=== PATIENT | female | born 2000 | race Caucasian/White ===

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

== ENCOUNTER 2019-05-13 15:02 | Emergency (ER) | payer OTHER ==
[2019-05-13 15:06] VITALS: BP 113/75; PULSE 88; RESP 20; TEMP 97.9
[2019-05-13] MEDS ORDERED: LIDOCAINE 1% INJ 10MG/ML (20 ML MDV) SQ STA (15:10)
[2019-05-13] MEDS ORDERED: DIPH,PERTUS(ACELL)TETVAC-LF 0.5 ML VIAL IM ONE (15:33)
--- NOTE | 2019-05-13 15:39 | ED ---
General Adult HPI - General Chief complaint: ENT Stated complaint: FB in ear Time Seen by Provider: 05/13/19 15:08 Source: patient Mode of arrival: ambulatory Limitations: no limitations - History of Present Illness Initial comments: 19-year-old female patient no pertinenet pmhx presents to ED for evaluation of piercing in right tragus. Patient reports that she had the piercing placed 5 days ago, reports that scabbed over causing her pain she wanted removed. Denies a chance of being . Denies any other complaints. Systemic: Pt denies fatigue, fever/chills, rash. Pt denies weakness, night sweats, weight loss. Neuro: Pt denies headache, visual disturbances, syncope or pre-syncope. HEENT: Pt denies ocular discharge or irritation, otalgia, rhinorrhea, pharyngitis or notable lymphadenopathy. Cardiopulmonary: Pt denies chest pain, SOB, heart palpitations, dyspnea on exertion. Abdominal/GI: Pt denies abdominal pain, n/v/d. : Pt denies dysuria, burning w/ urination, frequency/urgency. Denies new onset urinary or bowel incontinence. MSK: Pt denies myalgia, loss of strength or function in extremities. Neuro: Pt denies new onset weakness, paresthesias. - Related Data Home Medications Medication Instructions Recorded Confirmed Pnv No.95/Ferrous Fum/Folic AC 1 tab PO DAILY 11/29/18 11/29/18 [ Multivitamin Tablet] Allergies Allergy/AdvReac Type Severity Reaction Status Date / Time nickel Allergy Rash/Hives Verified 05/13/19 15:06 Review of Systems ROS Statement: Those systems with pertinent positive or pertinent negative responses have been documented in the HPI. ROS Other: All systems not noted in ROS Statement are negative. Past Medical History Past Medical History: No Reported History History of Any Multi-Drug Resistant Organisms: None Reported Past Surgical History: No Surgical Hx Reported Past Psychological History: No Psychological Hx Reported Smoking Status: Never smoker Past Alcohol Use History: None Reported Past Drug Use History: None Reported General Exam - General Exam Comments Initial Comments: Constitutional: NAD, AOX3, Pt has pleasant affect. HEENT: NC/AT, trachea midline, neck supple, no lymphadenopathy. Posterior pharynx non erythematous, without exudates. External ears appear normal, without discharge. Mucous membranes moist. Eyes PERRLA, EOM intact. There is no scleral icterus. No pallor noted. Cardiopulmonary: RRR, no murmurs, rubs or gallops, no JVD noted. Lungs CTAB in anterior and posterior granados. No peripheral edema. Abdominal exam: Abdomen soft and non-distended. Abdomen non-tender to palpation in all 4 quadrants. Bowel sounds active in LLQ. No hepatosplenomegaly. No ecchymosis Neuro: CN II-XII grossly intact. No nuchal rigidity. No raccon eyes, no mosher sign, no hemotympanum. No cervical spinal tenderness. MSK: Earring noted right tragus, grown over, superficial area not exposed. No erythema or discharge. No posterior calf tenderness bilaterally, homans sign negative bilaterally. Posterior tibialis and radial pulse +2 bilaterally. Sensation intact in upper and lower extremities. Full active ROM in upper and lower extremities, 5/5 stregnth. Limitations: no limitations Course Vital Signs 05/13/19 15:03 Temperature 97.9 F Pulse Rate 88 Respiratory 20 Rate Blood Pressure 113/75 O2 Sat by Pulse 99 Oximetry Procedures - Forgein Body Removal Soft Tissue Consent Obtained: verbal consent Site: face (Right tragus) Anesthetic Used: lidocaine 1% Amount (mLs): 1 Foreign Body Suspected: Other (Earring) Foreign Body Removed: yes Foreign Body Removal Technique: Forceps Patient Tolerated Procedure: well, no complications Medical Decision Making - Medical Decision Making 19-year-old female patient upper intestinal history presents to ED for evaluation of piercing in right tragus. Patient reports that she had the piercing placed 5 days ago, reports that scabbed over causing her pain she wanted removed. Denies a chance of being . Denies any other complaints. Patient vital signs are stable, afebrile. Physical exam displayed: Earring noted right tragus, grown over, superficial area not exposed. Area was cleaned with alcohol swab, anesthetized with 1 mL of lidocaine. Earring was removed. No erythema purulent drainage or signs of infection. Patient discharged return precautions tetanus is updated. Case discussed with Dr. Laws. Disposition Clinical Impression: Soft tissues foreign body, Embedded earring of right ear Disposition: HOME SELF-CARE Condition: Stable Instructions (If sedation given, give patient instructions): Soft Tissue Foreign Body (ED) Additional Instructions: Monitor for signs and symptoms of infection. Follow-up with primary care provider tomorrow. Return to ER if condition worsens. Is patient prescribed a controlled substance at d/c from ED?: No Referrals: None,Stated [Primary Care Provider] - 1-[address] [facility] Anika sheriff [NON-STAFF] - 1-2 days
== END 2019-05-13 15:55 | disposition home or self-care (01) ==
LOC: EC 15:02
DX: T16.1XXA Foreign body in right ear, initial encounter (principal); Z91.048 Other nonmedicinal substance allergy status; Z23 Encounter for immunization
CPT/HCPCS: 90715; 99282; 69200; 90471; J2001

== ENCOUNTER 2020-04-25 19:02 | Emergency (ER) | payer OTHER ==
[2020-04-25 19:09] VITALS: BP 112/74; PULSE 88; RESP 18; TEMP 98.4
--- NOTE | 2020-04-25 19:34 | ED ---
General Adult HPI - General Chief complaint: Vaginal Bleeding Stated complaint: female Time Seen by Provider: 04/25/20 19:22 Source: patient Mode of arrival: ambulatory Limitations: no limitations - History of Present Illness Initial comments: Dictation was produced using [employer] dictation software. please excuse any grammatical, word or spelling errors. This patient was cared for during a federal and state declared state of emergency secondary to Covid 19 Chief Complaint: 20-year-old female presents with excessive vaginal bleeding History of Present Illness: 20-year-old feels presents with excessive vaginal bleeding. Patient was told by her [employer] to seek medical attention if she had persistent bleeding including symptoms of bleeding. Patient states that her last month or so her menstrual cycle or so been very irregular. She denies any shortness of breath no lightheadedness. She took a test today which was negative. Patient states that prior to her menstrual cycle issues she's been very regular. Denies any other issues at this time. Patient is sexually active however she does not think she is . She is has varying degrees of bleeding throughout the last 2 weeks where she with either soaked through a tampon completely or just have some light spotting. She has no pelvic pain. She has no pain during sexual intercourse. The ROS documented in this emergency department record has been reviewed and confirmed by me. Those systems with pertinent positive or negative responses have been documented in the HPI. All other systems are other negative and/or noncontributory. PHYSICAL EXAM: General Impression: Alert and oriented x3, not in acute distress HEENT: Normocephalic atraumatic, extra-ocular movements intact, pupils equal and reactive to light bilaterally, mucous membranes moist. Cardiovascular: Heart regular rate and rhythm Chest: Able to complete full sentences, no retractions, no tachypnea Abdomen: abdomen soft, non-tender, non-distended, no organomegaly Musculoskeletal: Pulses present and equal in all extremities, no peripheral edema Motor: no focal deficits noted Neurological: CN II-XII grossly intact, no focal motor or sensory deficits noted Skin: Intact with no visualized rashes Psych: Normal affect and mood Pelvic: No cervical motion tenderness, vaginal mucosa is unremarkable, cervical os is closed, no cervical motion tenderness or bimanual tenderness ED course: 20-year-old female presents with clinical presentation consistent with metomenorrhagia. Vital signs upon arrival are within acceptable limits Laboratory evaluation obtained. Hemoglobin stable. Coag panel is negative. Metabolic panel is negative. Urine hCG is negative. Case is discussed with Dr. Landeros who is on-call for Dr. Kirkpatrick. Recommend that she follow up with Dr. Jenna langley for outpatient workup for dysfunctional uterine bleeding. Patient told to plan. She is agreeable for discharge. - Related Data Home Medications Medication Instructions Recorded Confirmed Pnv No.95/Ferrous Fum/Folic AC 1 tab PO DAILY 11/29/18 11/29/18 [ Multivitamin Tablet] Allergies Allergy/AdvReac Type Severity Reaction Status Date / Time nickel Allergy Rash/Hives Verified 04/25/20 19:09 Review of Systems ROS Statement: Those systems with pertinent positive or pertinent negative responses have been documented in the HPI. ROS Other: All systems not noted in ROS Statement are negative. Past Medical History Past Medical History: No Reported History History of Any Multi-Drug Resistant Organisms: None Reported Past Surgical History: No Surgical Hx Reported Past Psychological History: Anxiety Smoking Status: Never smoker Past Alcohol Use History: None Reported Past Drug Use History: None Reported General Exam Limitations: no limitations Course Vital Signs 04/25/20 19:06 Temperature 98.4 F Pulse Rate 88 Respiratory 18 Rate Blood Pressure 112/74 O2 Sat by Pulse 100 Oximetry Medical Decision Making - Lab Data Result diagrams: 04/25/20 19:48 04/25/20 19:48 Lab Results 04/25/20 04/25/20 04/25/20 Range/Units 19:48 19:48 19:48 WBC 5.5 (3.8-10.6) k/uL RBC 4.93 (3.80-5.40) m/uL Hgb 14.4 (11.4-16.0) gm/dL Hct 44.8 (34.0-46.0) % MCV 90.8 (80.0-100.0) fL MCH 29.3 (25.0-35.0) pg MCHC 32.2 (31.0-37.0) g/dL RDW 13.5 (11.5-15.5) % Plt Count 244 (150-450) k/uL MPV 8.5 Neutrophils % 53 % Lymphocytes % 35 % Monocytes % 5 % Eosinophils % 3 % Basophils % 1 % Neutrophils # 2.9 (1.3-7.7) k/uL Lymphocytes # 1.9 (1.0-4.8) k/uL Monocytes # 0.3 (0-1.0) k/uL Eosinophils # 0.2 (0-0.7) k/uL Basophils # 0.0 (0-0.2) k/uL PT 11.4 (9.0-12.0) sec INR 1.1 (<1.2) APTT 26.1 (22.0-30.0) sec Sodium 141 (137-145) mmol/L Potassium 3.5 (3.5-5.1) mmol/L Chloride 101 (98-107) mmol/L Carbon Dioxide 28 (22-30) mmol/L Anion Gap 12 mmol/L BUN 8 (7-17) mg/dL Creatinine 0.61 (0.52-1.04) mg/dL Est GFR (CKD-EPI)AfAm >90 (>60 ml/min/1.73 sqM) Est GFR (CKD-EPI)NonAf >90 (>60 ml/min/1.73 sqM) Glucose 100 H (74-99) mg/dL Calcium 9.6 (8.4-10.2) mg/dL Urine HCG, Qual (Not Detectd) 04/25/20 Range/Units 20:30 WBC (3.8-10.6) k/uL RBC (3.80-5.40) m/uL Hgb (11.4-16.0) gm/dL Hct (34.0-46.0) % MCV (80.0-100.0) fL MCH (25.0-35.0) pg MCHC (31.0-37.0) g/dL RDW (11.5-15.5) % Plt Count (150-450) k/uL MPV Neutrophils % % Lymphocytes % % Monocytes % % Eosinophils % % Basophils % % Neutrophils # (1.3-7.7) k/uL Lymphocytes # (1.0-4.8) k/uL Monocytes # (0-1.0) k/uL Eosinophils # (0-0.7) k/uL Basophils # (0-0.2) k/uL PT (9.0-12.0) sec INR (<1.2) APTT (22.0-30.0) sec Sodium (137-145) mmol/L Potassium (3.5-5.1) mmol/L Chloride (98-107) mmol/L Carbon Dioxide (22-30) mmol/L Anion Gap mmol/L BUN (7-17) mg/dL Creatinine (0.52-1.04) mg/dL Est GFR (CKD-EPI)AfAm (>60 ml/min/1.73 sqM) Est GFR (CKD-EPI)NonAf (>60 ml/min/1.73 sqM) Glucose (74-99) mg/dL Calcium (8.4-10.2) mg/dL Urine HCG, Qual Not Detected (Not Detectd) Disposition Clinical Impression: Menorrhagia Disposition: HOME SELF-CARE Condition: Good Instructions (If sedation given, give patient instructions): Menorrhagia (ED) Is patient prescribed a controlled substance at d/c from ED?: No Referrals: Trinity Kirkpatrick DO [Doctor of Osteopathic Medicine] - 1-2 days Time of Disposition: 20:43
[2020-04-25 19:53] LABS: Basophils % (A) 1 %; Eosinophils # (A) 0.2 k/uL (0-0.7); Eosinophils % (A) 3 %; HCT 44.8 % (34.0-46.0); HGB 14.4 gm/dL (11.4-16.0); Lymphocytes # (A) 1.9 k/uL (1.0-4.8); Lymphocytes % (A) 35 %; MCH 29.3 pg (25.0-35.0); MCHC 32.2 g/dL (31.0-37.0); MCV 90.8 fL (80.0-100.0); Mean Platelet Volume 8.5; Monocytes # (A) 0.3 k/uL (0-1.0); Monocytes % (A) 5 %; Neutrophils # (A) 2.9 k/uL (1.3-7.7); Neutrophils % (A) 53 %; Platelet Count 244 k/uL (150-450); RBC 4.93 m/uL (3.80-5.40); RDW 13.5 % (11.5-15.5); WBC 5.5 k/uL (3.8-10.6)
[2020-04-25 20:01] LABS: African American GFR (CKD) >90 (>60 ml/min/1.73 sqM); Anion Gap 12 mmol/L; Blood Urea Nitrogen 8 mg/dL (7-17); Calcium 9.6 mg/dL (8.4-10.2); Carbon Dioxide 28 mmol/L (22-30); Chloride 101 mmol/L (98-107); Glucose 100 mg/dL (74-99); Non-African American GFR(CKD) >90 (>60 ml/min/1.73 sqM); Potassium 3.5 mmol/L (3.5-5.1); Sodium 141 mmol/L (137-145)
[2020-04-25 20:13] LABS: INR 1.1 (<1.2); Prothrombin Time 11.4 sec (9.0-12.0)
[2020-04-25 20:14] LABS: Partial Thromboplastin Time 26.1 sec (22.0-30.0)
== END 2020-04-25 20:56 | disposition home or self-care (01) ==
LOC: EC 19:02
DX: N92.0 Excessive and frequent menstruation with regular cycle (principal); Z91.048 Other nonmedicinal substance allergy status
CPT/HCPCS: 36415; 80048; 81025; 85025; 85610; 85730; 87491; 87591; 99284

== ENCOUNTER 2020-06-23 22:08 | Emergency (ER) | payer OTHER ==
[2020-06-23 22:18] VITALS: RESP 18; TEMP 98.5
[2020-06-23] MEDS ORDERED: ACETAMINOPHEN TAB 500 MG TAB PO STA (23:41)
--- NOTE | 2020-06-24 00:20 | ED ---
General Adult HPI - General Chief complaint: Vaginal Bleeding Stated complaint: vaginal beeding, 6weeks Time Seen by Provider: 06/23/20 22:26 Source: patient Mode of arrival: ambulatory Limitations: no limitations - History of Present Illness Initial comments: 20-year-old female patient presents to the emergency department today for evaluation of vaginal bleeding and abdominal cramping. Patient states she is approximately 6 weeks with a last menstrual period 05/12/2020. She is with previous vaginal delivery. Patient states that the abdominal pain has improved. States she did pass a couple of very large blood clots today. States she has changed her pad every few hours. She was seen and evaluated at [facility], underwent lab testing and ultrasound. States that her hCG level was 1100, but was not given ultrasound results. She does have an appointment with Dr. Kirkpatrick on the . Patient denies any recent rash, fever, chills, cough, shortness of breath, chest pain, nausea, vomiting, diarrhea, constipation, back pain, numbness, tingling, dizziness, weakness, hematuria, dysuria, urinary urgency, urinary frequency, headache, visual changes, or any other complaints. - Related Data Home Medications Medication Instructions Recorded Confirmed Pnv No.95/Ferrous Fum/Folic AC 1 tab PO DAILY 11/29/18 11/29/18 [ Multivitamin Tablet] Allergies Allergy/AdvReac Type Severity Reaction Status Date / Time nickel Allergy Rash/Hives Verified 06/23/20 22:18 Review of Systems ROS Statement: Those systems with pertinent positive or pertinent negative responses have been documented in the HPI. ROS Other: All systems not noted in ROS Statement are negative. Past Medical History Past Medical History: No Reported History History of Any Multi-Drug Resistant Organisms: None Reported Past Surgical History: No Surgical Hx Reported Past Psychological History: Anxiety Smoking Status: Never smoker Past Alcohol Use History: None Reported Past Drug Use History: None Reported General Exam Limitations: no limitations General appearance: alert, in no apparent distress, other (this is a well- developed, well-nourished adult female patient in no acute distress.) ENT exam: Present: normal exam, normal oropharynx, mucous membranes moist Respiratory exam: Present: normal lung sounds bilaterally. Absent: respiratory distress, wheezes, rales, rhonchi, stridor Cardiovascular Exam: Present: regular rate, normal rhythm, normal heart sounds. Absent: systolic murmur, diastolic murmur, rubs, gallop, clicks GI/Abdominal exam: Present: soft, normal bowel sounds. Absent: distended, tenderness, guarding, rebound, rigid Neurological exam: Present: alert, oriented X3, CN II-XII intact Psychiatric exam: Present: normal affect, normal mood Skin exam: Present: warm, dry, intact, normal color. Absent: rash Course Vital Signs 06/23/20 06/24/20 22:14 00:50 Temperature 98.5 F Pulse Rate 99 82 Respiratory 18 18 Rate Blood Pressure 121/82 118/68 O2 Sat by Pulse 99 100 Oximetry Medical Decision Making - Medical Decision Making 20-year-old female patient presents to the emergency department today for evaluation of vaginal bleeding and abdominal cramping. 6 weeks with last menstrual period May 12. Physical examination did reveal soft nontender abdomen. Did perform pelvic exam which showed a large blood clot in the vaginal vault which was cleared, cervical os does appear to be open. I did review reports from [facility] including labs showed a normal hemoglobin, hCG was 1100, ultrasound showed no intrauterine , no adnexal mass. I did discuss the results with the patient. We did discuss possibility of miscarriage versus very early . She will be discharged home with a lab prescription to have repeat hCG in 2 days. Results will be sent to Dr. Kirkpatrick. She is instructed to call Dr. Kirkpatrick's office in the morning to see if she can have a sooner appointment. Return parameters were discussed in detail. She verbalizes understanding and agrees with this plan. Case discussed with my attending Dr. Alvarez. - Radiology Data Radiology results: report reviewed Disposition Clinical Impression: Threatened miscarriage Disposition: HOME SELF-CARE Condition: Good Instructions (If sedation given, give patient instructions): Threatened Miscarriage (ED) Additional Instructions: Return in 2 days to have the hormone level redrawn. Follow-up with Dr. Kirkpatrick as soon as possible. Follow-up through primary care physician for recheck in 1-2 days. Return to the emergency department for any new, worsening, or concerning symptoms. Is patient prescribed a controlled substance at d/c from ED?: No Referrals: Concepción Dc III, MD [Primary Care Provider] - 1-2 days Trinity Kirkpatrick DO [Doctor of Osteopathic Medicine] - 1-2 days Time of Disposition: 00:20
[2020-06-24 00:57] VITALS: BP 118/68; PULSE 82
== END 2020-06-24 00:55 | disposition home or self-care (01) ==
LOC: EC 22:08
DX: O20.0 Threatened abortion (principal); O99.341 Other mental disorders complicating pregnancy, first trimester; F41.9 Anxiety disorder, unspecified; Z3A.01 Less than 8 weeks gestation of pregnancy
CPT/HCPCS: 99283

== ENCOUNTER → 2020-07-08 | Outpatient (CLI) | payer OTHER | END | disposition home or self-care (01) | LOC: LABWHC1 15:34 | PROVIDERS: ATTEND Obstetrics & Gynecology | DX: O03.9 Complete or unspecified spontaneous abortion without complication (principal); Z3A.00 Weeks of gestation of pregnancy not specified | CPT/HCPCS: 36415; 84702 ==

== ENCOUNTER 2020-09-06 18:56 | Emergency (ER) | payer OTHER ==
[2020-09-06] MEDS ORDERED: KETOROLAC 15 MG/ML 1 ML VIAL IVP STA (19:42)
[2020-09-06 20:04] LABS: Basophils # (A) 0.1 k/uL (0-0.2); Basophils % (A) 1 %; Eosinophils # (A) 0.2 k/uL (0-0.7); Eosinophils % (A) 3 %; HCT 41.5 % (34.0-46.0); HGB 14.1 gm/dL (11.4-16.0); Lymphocytes # (A) 2.2 k/uL (1.0-4.8); Lymphocytes % (A) 35 %; MCH 30.4 pg (25.0-35.0); MCHC 33.9 g/dL (31.0-37.0); MCV 89.5 fL (80.0-100.0); Monocytes # (A) 0.4 k/uL (0-1.0); Monocytes % (A) 7 %; Neutrophils # (A) 3.2 k/uL (1.3-7.7); Neutrophils % (A) 52 %; Platelet Count 242 k/uL (150-450); RBC 4.63 m/uL (3.80-5.40); RDW 13.3 % (11.5-15.5); WBC 6.2 k/uL (3.8-10.6)
[2020-09-06 20:07] LABS: Appearance,Urine Cloudy (Clear); Bacteria,Urine Rare /hpf; Bilirubin,Urine Negative (Negative); Blood,Urine Negative (Negative); Budding Yeast,Urine Few /hpf; Color,Urine Light Yellow; Glucose,Urine (UA) Negative (Negative); Ketones,Urine Negative (Negative); Leukocyte Esterase,Urine Moderate (Negative); Mucus,Urine Rare /hpf; Nitrite,Urine Negative (Negative); PH, Urine 6.5 (5.0-8.0); Protein,Urine Negative (Negative); RBC,Urine 3 /hpf (0-5); Specific Gravity,Urine 1.011 (1.001-1.035); Squamous Epithelial Cell,Urine 9 /hpf (0-4); Urobilinogen,Urine <2.0 mg/dL (<2.0); WBC,Urine 6 /hpf (0-5)
[2020-09-06 20:16] LABS: ALT 12 U/L (4-34); AST 23 U/L (14-36); African American GFR (CKD) >90 (>60 ml/min/1.73 sqM); Albumin 4.5 g/dL (3.5-5.0); Alkaline Phosphatase 42 U/L (38-126); Anion Gap 9 mmol/L; Blood Urea Nitrogen 8 mg/dL (7-17); Calcium 9.5 mg/dL (8.4-10.2); Carbon Dioxide 28 mmol/L (22-30); Chloride 102 mmol/L (98-107); Glucose 93 mg/dL (74-99); Lipase 132 U/L (23-300); Non-African American GFR(CKD) >90 (>60 ml/min/1.73 sqM); Potassium 3.5 mmol/L (3.5-5.1); Sodium 139 mmol/L (137-145); Total Bilirubin 0.5 mg/dL (0.2-1.3); Total Protein 7.4 g/dL (6.3-8.2)
--- NOTE | 2020-09-06 20:38 | ED ---
Abdominal Pain HPI - General Chief Complaint: Abdominal Pain Stated Complaint: abd pain Time Seen by Provider: 09/06/20 19:32 Source: patient Mode of arrival: ambulatory Limitations: no limitations - History of Present Illness Initial Comments: This 20-year-old female presents complaining of some right upper quadrant abdominal pain. This initially started approximately 2 weeks and was fairly severe at that time. It is been intermittent since that time. She has had occasional nausea but no vomiting, diarrhea, fevers, or chills. She denies any previous history of similar. It does not seem to be related to food intake. She denies any frequency, urgency or dysuria. She had a miscarriage this past spring and does not feel think that she is currently as she had a negative urine test a couple days ago. No other complaints or modifying factors. MD Complaint: abdominal pain - Related Data Home Medications Medication Instructions Recorded Confirmed Acetaminophen Tab [Tylenol Tab] 500 mg PO Q6H PRN 09/06/20 09/06/20 Cyanocobalamin (Vitamin B-12) 1,000 mcg PO DAILY PRN 09/06/20 09/06/20 [Vitamin B-12] Ondansetron HCl [Zofran] 4 mg PO BID PRN 09/06/20 09/06/20 Previous Rx's Medication Instructions Recorded Metoclopramide [Reglan] 10 mg PO Q6H PRN #20 tab 09/06/20 Nitrofurantoin Monohyd/M-Cryst 100 mg PO Q12HR #14 cap 09/06/20 [Macrobid] Allergies Allergy/AdvReac Type Severity Reaction Status Date / Time nickel Allergy Rash/Hives Verified 09/06/20 20:29 Review of Systems ROS Statement: Those systems with pertinent positive or pertinent negative responses have been documented in the HPI. ROS Other: All systems not noted in ROS Statement are negative. Past Medical History Past Medical History: No Reported History History of Any Multi-Drug Resistant Organisms: None Reported Past Surgical History: No Surgical Hx Reported Past Psychological History: Anxiety Smoking Status: Never smoker Past Alcohol Use History: None Reported Past Drug Use History: None Reported General Exam - General Exam Comments Initial Comments: GENERAL: The patient is well nourished and well hydrated. VITAL SIGNS: Heart rate, blood pressure, respiratory rate reviewed as recorded in nurse's notes. EYES: Pupils are round and reactive. Extraocular movements are intact. No conjunctival / lid redness or swelling. ENT: No external evidence of injury, swelling, or ecchymosis. Airway is patent. Throat is clear. NECK: Nontender. No swelling or evidence of injury. No subcutaneous emphysema. Trachea is midline. No thyroid mass. HEART: Regular rate and rhythm. Good peripheral pulses. LUNGS/CHEST: Breath sounds clear and equal bilaterally. No rales, rhonchi, or w heezes. No ecchymosis, subcutaneous emphysema, or tenderness. ABDOMEN: Slight tenderness noted to right upper quadrant. No palpable masses or organomegaly. No peritoneal signs. No abdominal wall swelling or ecchymosis. EXTREMITIES: No extremity tenderness. Normal muscle tone and function. No thor acolumbar tenderness. NEUROLOGIC: Sensation is grossly intact. Cranial nerve exam reveals face is s ymmetrical, tongue is midline, speech is clear. SKIN: No abrasions or ecchymosis is noted. No induration or masses noted. PSYCHIATRIC: Alert and oriented. Appropriate behavior and judgment. Limitations: no limitations Course Vital Signs 09/06/20 09/06/20 19:11 19:52 Temperature 97.9 F Pulse Rate 98 95 Respiratory 16 20 Rate Blood Pressure 113/77 112/67 O2 Sat by Pulse 100 99 Oximetry Medical Decision Making - Medical Decision Making The patient was seen and examined. All diagnostics are reviewed. She received Toradol 15 mg intravenously. The urine came back equivocal for urinary tract infection. The laboratory otherwise was essentially negative but the urine test was positive so the quantitative beta hCG was ordered and was f ound to be 178 which is consistent with very early . The gallbladder ultrasound does show evidence of gallstones. It is felt as though she may benefit from follow-up with general surgery as an outpatient. She also will be covered for possible urinary infection especially in light of increased risk due to . She is instructed to utilize Tylenol if needed for pain. She'll be prescribed Reglan as needed for nausea. Diet therapy is discussed in detail. Return parameters are discussed. Close follow-up recommended - Lab Data Result diagrams: 09/06/20 19:47 09/06/20 19:47 Lab Results 09/06/20 09/06/20 09/06/20 Range/Units 19:47 19:47 19:47 WBC 6.2 (3.8-10.6) k/uL RBC 4.63 (3.80-5.40) m/uL Hgb 14.1 (11.4-16.0) gm/dL Hct 41.5 (34.0-46.0) % MCV 89.5 (80.0-100.0) fL MCH 30.4 (25.0-35.0) pg MCHC 33.9 (31.0-37.0) g/dL RDW 13.3 (11.5-15.5) % Plt Count 242 (150-450) k/uL MPV 8.0 Neutrophils % 52 % Lymphocytes % 35 % Monocytes % 7 % Eosinophils % 3 % Basophils % 1 % Neutrophils # 3.2 (1.3-7.7) k/uL Lymphocytes # 2.2 (1.0-4.8) k/uL Monocytes # 0.4 (0-1.0) k/uL Eosinophils # 0.2 (0-0.7) k/uL Basophils # 0.1 (0-0.2) k/uL Sodium (137-145) mmol/L Potassium (3.5-5.1) mmol/L Chloride (98-107) mmol/L Carbon Dioxide (22-30) mmol/L Anion Gap mmol/L BUN (7-17) mg/dL Creatinine (0.52-1.04) mg/dL Est GFR (CKD-EPI)AfAm (>60 ml/min/1.73 sqM) Est GFR (CKD-EPI)NonAf (>60 ml/min/1.73 sqM) Glucose (74-99) mg/dL Calcium (8.4-10.2) mg/dL Total Bilirubin (0.2-1.3) mg/dL AST (14-36) U/L ALT (4-34) U/L Alkaline Phosphatase (38-126) U/L Total Protein (6.3-8.2) g/dL Albumin (3.5-5.0) g/dL Lipase (23-300) U/L HCG, Quant mIU/mL Urine Color Light Yellow Urine Appearance Cloudy H (Clear) Urine pH 6.5 (5.0-8.0) Ur Specific [place] 1.011 (1.001-1.035) Urine Protein Negative (Negative) Urine Glucose (UA) Negative (Negative) Urine Ketones Negative (Negative) Urine Blood Negative (Negative) Urine Nitrite Negative (Negative) Urine Bilirubin Negative (Negative) Urine Urobilinogen <2.0 (<2.0) mg/dL Ur Leukocyte Esterase Moderate H (Negative) Urine RBC 3 (0-5) /hpf Urine WBC 6 H (0-5) /hpf Ur Squamous Epith Cells 9 H (0-4) /hpf Urine Bacteria Rare H (None) /hpf Urine Mucus Rare H (None) /hpf Urine Yeast (Budding) Few H (None) /hpf Urine HCG, Qual Detected (Not Detectd) 09/06/20 09/06/20 Range/Units 19:47 19:47 WBC (3.8-10.6) k/uL RBC (3.80-5.40) m/uL Hgb (11.4-16.0) gm/dL Hct (34.0-46.0) % MCV (80.0-100.0) fL MCH (25.0-35.0) pg MCHC (31.0-37.0) g/dL RDW (11.5-15.5) % Plt Count (150-450) k/uL MPV Neutrophils % % Lymphocytes % % Monocytes % % Eosinophils % % Basophils % % Neutrophils # (1.3-7.7) k/uL Lymphocytes # (1.0-4.8) k/uL Monocytes # (0-1.0) k/uL Eosinophils # (0-0.7) k/uL Basophils # (0-0.2) k/uL Sodium 139 (137-145) mmol/L Potassium 3.5 (3.5-5.1) mmol/L Chloride 102 (98-107) mmol/L Carbon Dioxide 28 (22-30) mmol/L Anion Gap 9 mmol/L BUN 8 (7-17) mg/dL Creatinine 0.53 (0.52-1.04) mg/dL Est GFR (CKD-EPI)AfAm >90 (>60 ml/min/1.73 sqM) Est GFR (CKD-EPI)NonAf >90 (>60 ml/min/1.73 sqM) Glucose 93 (74-99) mg/dL Calcium 9.5 (8.4-10.2) mg/dL Total Bilirubin 0.5 (0.2-1.3) mg/dL AST 23 (14-36) U/L ALT 12 (4-34) U/L Alkaline Phosphatase 42 (38-126) U/L Total Protein 7.4 (6.3-8.2) g/dL Albumin 4.5 (3.5-5.0) g/dL Lipase 132 (23-300) U/L HCG, Quant 178.9 mIU/mL Urine Color Urine Appearance (Clear) Urine pH (5.0-8.0) Ur Specific [place] (1.001-1.035) Urine Protein (Negative) Urine Glucose (UA) (Negative) Urine Ketones (Negative) Urine Blood (Negative) Urine Nitrite (Negative) Urine Bilirubin (Negative) Urine Urobilinogen (<2.0) mg/dL Ur Leukocyte Esterase (Negative) Urine RBC (0-5) /hpf Urine WBC (0-5) /hpf Ur Squamous Epith Cells (0-4) /hpf Urine Bacteria (None) /hpf Urine Mucus (None) /hpf Urine Yeast (Budding) (None) /hpf Urine HCG, Qual (Not Detectd) Disposition Clinical Impression: Acute abdominal pain, Nausea, Gallstones, Gallbladder colic, Urinary tract infection, First trimester Disposition: HOME SELF-CARE Condition: Good Instructions (If sedation given, give patient instructions): Abdominal Pain (ED), Gallstones (ED), Nausea and Vomiting in (ED), Urinary Tract Infection in Women (ED) Additional Instructions: Please follow-up with your REHABILITATION TECH physician in the next week. You also may take Tylenol if needed for pain. Prescriptions: Nitrofurantoin Monohyd/M-Cryst [Macrobid] 100 mg PO Q12HR #14 cap Metoclopramide [Reglan] 10 mg PO Q6H PRN #20 tab PRN Reason: Nausea Is patient prescribed a controlled substance at d/c from ED?: No Referrals: Concepción Dc III, MD [Primary Care Provider] - 1-2 days Katie Linares MD [STAFF PHYSICIAN] - 09/09/20 Time of Disposition: 22:07
--- NOTE | 2020-09-06 21:12 | US ---
EXAMINATION TYPE: US gallbladder DATE OF EXAM: 09/06/2020 COMPARISON: NONE CLINICAL HISTORY: abd pain. Abdominal pain x 2 weeks. EXAM MEASUREMENTS: Liver Length: 15.25 cm Gallbladder Wall: 0.27 cm CBD: 0.23 cm Right Kidney: 12.0 x 5.5 x 4.1 cm Limited due to gas. Pancreas: No abnormalities seen. Liver: No abnormalities seen. Gallbladder: 2 hyperechoic areas with posterior shadowing seen within the gallbladder- #1: 1.8 x 1.3 x 1.1 cm. #2: 1.7 x 1.5 x 1.0 cm. Evidence for sonographic Dickey's sign: No CBD: Appears to be wnl. Right Kidney: Measures upper limits of normal. IMPRESSION: There are large gallstones. No dilated ducts. Normal right kidney.
[2020-09-06 22:38] VITALS: BP 111/73; PULSE 94; RESP 17; TEMP 98.4
== END 2020-09-06 22:36 | disposition home or self-care (01) ==
LOC: EC 18:56
DX: O99.611 Diseases of the digestive system complicating pregnancy, first trimester (principal); O23.41 Unspecified infection of urinary tract in pregnancy, first trimester; K80.70 Calculus of gallbladder and bile duct without cholecystitis without obstruction; Z91.048 Other nonmedicinal substance allergy status; Z3A.00 Weeks of gestation of pregnancy not specified
CPT/HCPCS: 36415; 76705; 80053; 81001; 81025; 83690; 84702; 85025; 99284

== ENCOUNTER 2020-09-25 | Emergency (ER) | payer OTHER | END 2020-09-25 17:35 | disposition home or self-care (01) ==

== ENCOUNTER 2020-11-04 07:54 | Day surgery (SDC) | payer OTHER ==
[2020-11-01 11:54] VITALS: BMI 19.4
--- NOTE | 2020-11-04 07:36 | P.GSHP ---
History of Present Illness H&P Date: 11/04/20 CHIEF COMPLAINT: Cholecystitis HISTORY OF PRESENT ILLNESS: The patient is a 20-year-old female who presents with history of epigastric including right upper quadrant abdominal pain. She underwent diagnostic studies for her gallbladder. Separately her clinical picture was consistent with cholecystitis. Now she presents for surgical intervention. PAST MEDICAL HISTORY: Please see list PAST SURGICAL HISTORY: Please see list MEDICATIONS: Please see list ALLERGIES: Please see list SOCIAL HISTORY: Please see list FAMILY HISTORY: Please see list REVIEW OF ORGAN SYSTEMS: CONSTITUTIONAL: No reports of fevers or chills. HEENT: Denies any troubles with the vision or hearing. ENDOCRINE: No reports of hypothyroidism. No diabetes. RESPIRATORY: No recent pneumonias. CARDIOVASCULAR: Denies chest pain or palpitations GI: No blood in stools or constipation. MUSCULOSKELETAL: Has occasional joint pain including back pain. NEURO: No seizure disorders or headaches. No recent stroke. PSYCH: No depression or suicidal ideation. GENITOURINARY: No active blood in urine. No urinary hesitancy. HEMATOLOGIC: No personal or family history of DVTs or pulmonary emboli. SKIN: No skin cancer. PHYSICAL EXAM: VITAL SIGNS: Afebrile vital signs stable GENERAL: Well-developed pleasant in no acute distress. HEENT: No scleral icterus. Extraocular movements grossly intact. Moist buccal mucosa. NECK: Supple without lymphadenopathy. CHEST: Unlabored respirations. Equal bilateral excursions. CARDIOVASCULAR: Regular rate regular rhythm rhythm. Distal 2+ pulses. ABDOMEN: Soft, nondistended. MUSCULOSKELETAL: No clubbing, cyanosis, or edema. NEURO: Cranial nerves II to XII within normal limits. No focal or lateralizing signs. PSYCH: Alert and oriented to person, place and time. SKIN: Well-perfused good skin turgor. ASSESSMENT: 1. Chronic cholecystitis 2. Symptomatic gallstones. PLAN: 1. Will need a robotic cholecystectomy possible open. Benefits and risks were described. 2. Heparin for DVT prophylaxis 5000 units. 3. Antibiotic prophylaxis. Past Medical History Past Medical History: No Reported History Additional Past Medical History / Comment(s): Abd pain for the past 3 months with gallstones. History of Any Multi-Drug Resistant Organisms: None Reported Past Surgical History: No Surgical Hx Reported Additional Past Anesthesia/Blood Transfusion Reaction / Comment(s): Has never had anesthesia. Smoking Status: Never smoker - Past Family History Mother Family Medical History: CVA/TIA Medications and Allergies Allergies Allergy/AdvReac Type Severity Reaction Status Date / Time nickel Allergy Rash/Hives Verified 11/01/20 11:35
[~2020-11-04 07:54] MED LIST: ACETAMINOPHEN TAB 500 MG TAB PO PRN; DEXAMETHASONE SOD PHOSPHATE 4 MG/ML 1 ML VIAL IV ONE; HEPARIN SODIUM,PORCINE/PF 5,000 UNIT/0.5 ML SYRINGE SQ PRN; INDOCYANINE GREEN 25 MG VIAL IV PRN; KETOROLAC 15 MG/ML 1 ML VIAL IVP PRN; LACTATED RINGERS 1,000 ML IV SCH; LIDOCAINE 1% (10MG/ML) FOR IV START INTRADERMA PRN; MIDAZOLAM 2 MG/2 ML VIAL IV PRN; ONDANSETRON 4 MG/2 ML VIAL IVP ONE; SCOPOLAMINE 1.5MG/72HR PATCH TRANSDERM SCH
[2020-11-04] MEDS ORDERED: MIDAZOLAM 2 MG/2 ML VIAL ONE (09:25)
[2020-11-04] MEDS ORDERED: PROPOFOL 10 MG/ML 20 ML VIAL IV ONE (09:25)
[2020-11-04] MEDS ORDERED: GLYCOPYRROLATE 0.2 MG/ML 2 ML VIAL ONE (09:25)
[2020-11-04] MEDS ORDERED: fentaNYL (PF) 50 MCG/ML 2 ML AMP ONE (09:25)
[2020-11-04] MEDS ORDERED: NEOSTIGMINE 1 MG/ML 10 ML VIAL ONE (09:25)
[2020-11-04] MEDS ORDERED: HYDROmorphone (PF) 1 MG/ML ONE (09:25)
[2020-11-04] MEDS ORDERED: LIDOCAINE 1% INJ 10MG/ML (20 ML MDV) ONE (09:25)
[2020-11-04] MEDS ORDERED: ROCURONIUM 10 MG/ML (5 ML VIAL) IV ONE (09:25)
[2020-11-04] MEDS ORDERED: INDOCYANINE GREEN 25 MG VIAL IV ONE (09:25)
[2020-11-04] MEDS ORDERED: KETOROLAC 15 MG/ML 1 ML VIAL ONE (09:25)
[2020-11-04] MEDS ORDERED: SUCCINYLCHOLINE CHLORIDE 100 MG/5 ML SYR IV ONE (09:25)
[2020-11-04] MEDS ORDERED: LIDOCAINE 1%-EPI 1:100,000 20 ML VIAL SQ ONE ×2 (09:29→09:55)
--- NOTE | 2020-11-04 10:53 | P.OP ---
Date of Procedure: 11/04/20 Description of Procedure: SURGEON: LUCI LINARES MD PREOPERATIVE DIAGNOSES: 1. Symptomatic gallstones 2. Right upper quadrant abdominal pain POSTOPERATIVE DIAGNOSES: 1. Symptomatic gallstones 2. Right upper quadrant abdominal pain 3. Chronic cholecystitis OPERATION: Robotic-assisted da Dari Xi laparoscopic cholecystectomy, multiport with FIREFLY ESTIMATED BLOOD LOSS: 5 mL. SPECIMENS REMOVED: Gallbladder. COMPLICATIONS: None. OPERATIVE FINDINGS: 1. Large gallstone over 10 mm in size INDICATIONS: The patient is a 20-year-old female who presents with symptomatic gallstones. Robotic assisted laparoscopic approach was described. Benefits and risks of the procedure including but not limited to bleeding, infection, injury to the biliary tree was described. Informed consent was obtained. DESCRIPTION OF PROCEDURE: Patient was brought to the operating room, placed in supine position. After general induction, the abdomen had been prepped and draped in standard sterile fashion. The robotic da Dari XI system was primed. After a timeout protocol was performed, the patient had been prepped and draped in standard sterile fashion. The patient was injected with indocyanine green. A 5 mm 0 degrees laparoscopic trocar entry was performed along the left upper quadrant. The abdomen insufflated to 15 mmHg pressure which was tolerated well. Diagnostic laparoscopy demonstrated no injury to bowel viscera or mesentery. The liver surface was unremarkable. Next, two 8 mm robotic ports were placed along the right upper abdomen. The camera 8-mm port was maintained along the epigastrium. Another 8 mm port was placed along the left upper abdominal wall after exchanging the 5 mm port. Please note that the ports were placed at least 10 to 15 cm away from the target anatomy of the gallbladder. The robot was docked along the left lateral abdomen. The patient was repositioned in reverse Trendelenburg position. Using a grasper for arm 3, a grasper for arm 4, including hook cautery for arm 1, the robotic system was docked and primed as described. Instruments were interchanged by the human resource assistant including hook cautery, Bovie cautery and clip appliers. I had sat at the console. Next attention was brought to the infundibulum and cystic structures. The infundibulum and cystic duct were dissected free from surrounding tissues. The cystic duct was isolated. FIREFLY was used to identify the cystic artery and cystic structures. A critical view of safety was obtained. Large PLASTIC clips were used throughout the entire case. Using a clip board stacker, 2 clips were placed at the junction of the infundibulum and cystic duct. The cystic duct was divided between clips. Next, the cystic artery was similarly clipped and cauterized. Electro-Bovie cautery was used to remove the gallbladder from the hepatic fossa. Hemostasis was checked and found to be adequate. The robot was undocked. I re-scrubbed into the case. Using a 10 mm Endo Catch bag via the left upper quadrant incision, the specimen was removed from the abdominal cavity. All pneumoperitoneum instruments were evacuated from the abdominal cavity. The incisions were reapproximated using 4-0 Monocryl in an interrupted subcuticular fashion. Brandan-Puja and 0 Vicryl was used to close the left upper quadrant incision due to large gallstones. Please note along the trocar sites, local anesthetic was placed as a field block prior to insertion of all instruments. Liquid glue was applied to the skin. At the end of the procedure needle, sponge, and instrument count had been verified correct by the surgical assist. The patient was transferred to postanesthesia care unit in stable condition. Plan - Discharge Summary Discharge Rx Participant: Yes New Discharge Prescriptions: New Ibuprofen [Motrin] 600 mg PO Q8HR PRN #30 tab PRN Reason: Pain Simethicone 40 mg/0.6 ml Drops [Mylicon Drops] 40 mg PO Q6HR PRN #30 ml PRN Reason: Abdominal Distention Acetaminophen [Tylenol] 650 mg PO Q4H PRN #30 tab PRN Reason: Pain Discharge Medication List Acetaminophen [Tylenol] 650 mg PO Q4H PRN #30 tab 11/04/20 [Rx] Ibuprofen [Motrin] 600 mg PO Q8HR PRN #30 tab 11/04/20 [Rx] Simethicone 40 mg/0.6 ml Drops [Mylicon Drops] 40 mg PO Q6HR PRN #30 ml 11/04/20 [Rx] Follow up Appointment(s)/Referral(s): Luci Linares MD [STAFF PHYSICIAN] - 11/17/20 Patient Instructions/Handouts: *[facility] - Laparoscopic Cholecystectomy Discharge Instructions, *[facility] - (Anesthesia) Discharge Instructions Outpatient Surgery, *[facility] - Scopalamine Patch Instructions, Low Fat Diet (DC) Activity/Diet/Wound Care/Special Instructions: Recommend low-fat diet for the next 2 days. No lifting over 10 pounds in 2 weeks until Nov 18. May shower. No bath tub soaks for two weeks until Nov 18. Diet as tolerated. Use Tylenol, simethicone and ibuprofen or Aleve scheduled for the next 24-48 hours for best pain relief. Use ice along incisions for today to prevent swelling. Discharge Disposition: HOME SELF-CARE
[2020-11-04 10:57] VITALS: TEMP 97.6
[2020-11-04] MEDS ORDERED: IV FLUID CONTINUATION 1,000 ML IV ONE (11:10)
[2020-11-04] MEDS ORDERED: LACTATED RINGERS 1,000 ML IV ONE (11:10)
[2020-11-04] MEDS: HYDROmorphone 0.5 MG/0.5 ML SYRINGE IVP PRN ×2 (11:14→11:23)
[2020-11-04] MEDS ORDERED: ONDANSETRON 4 MG/2 ML VIAL ONE (12:33)
[2020-11-04] MEDS ORDERED: ONDANSETRON 4 MG/2 ML VIAL IVP ONE (12:49)
[2020-11-04] MEDS ORDERED: ACETAMINOPHEN TAB 325 MG TAB ONE (13:57)
[2020-11-04] MEDS ORDERED: PROMETHAZINE INJ 25 MG/ML 1 ML VIAL IVPB ONE (14:40)
[2020-11-04] MEDS ORDERED: TAMSULOSIN 0.4 MG CAP.ER.24H PO ONE (15:56)
[2020-11-04 16:40] VITALS: RESP 16
[2020-11-04 16:42] VITALS: BP 101/61; PULSE 74
[2020-11-04] MEDS ORDERED: IBUPROFEN 200 MG TAB PO ONE (16:43)
== END 2020-11-04 17:17 | disposition home or self-care (01) ==
LOC: OR 07:54
PROVIDERS: ATTEND Surgery Plastic and Reconstructive Surgery
DX: K80.10 Calculus of gallbladder with chronic cholecystitis without obstruction (principal)
CPT/HCPCS: 47563; 81025; 88304; J2250; J1100; J2550; J2710; J0690; J2405; J2001; J3010; J1170 ×2; J1885; J0330; J2704; J1644

== ENCOUNTER → 2021-03-28 | Outpatient (CLI) | payer OTHER | END | disposition home or self-care (01) | LOC: LABWHC1 10:36 | PROVIDERS: ATTEND Obstetrics & Gynecology | DX: N91.2 Amenorrhea, unspecified (principal) | CPT/HCPCS: 36415; 84702 ==

== ENCOUNTER 2022-01-26 02:30 | Emergency (ER) | payer OTHER ==
[2022-01-26 02:38] VITALS: TEMP 98.6
[2022-01-26] MEDS ORDERED: SODIUM CHLORIDE 0.9% 1,000 ML IV STA (02:58)
[2022-01-26 03:22] LABS: Basophils # (A) 0.1 k/uL (0-0.2); Basophils % (A) 1 %; Eosinophils # (A) 0.1 k/uL (0-0.7); Eosinophils % (A) 2 %; HCT 41.8 % (34.0-46.0); HGB 13.8 gm/dL (11.4-16.0); Hypochromasia Slight; Lymphocytes % (A) 34 %; MCH 28.3 pg (25.0-35.0); MCHC 33.1 g/dL (31.0-37.0); MCV 85.4 fL (80.0-100.0); Mean Platelet Volume 10.1; Monocytes # (A) 0.4 k/uL (0-1.0); Monocytes % (A) 7 %; Neutrophils # (A) 3.2 k/uL (1.3-7.7); Neutrophils % (A) 53 %; Platelet Count 213 k/uL (150-450); RDW 13.9 % (11.5-15.5)
[2022-01-26 03:32] LABS: ALT 14 U/L (4-34); AST 26 U/L (14-36); African American GFR (CKD) >90 (>60 ml/min/1.73 sqM); Albumin 5.1 g/dL (3.5-5.0); Alkaline Phosphatase 51 U/L (38-126); Amylase 60 U/L (30-110); Anion Gap 9 mmol/L; Blood Urea Nitrogen 5 mg/dL (7-17); Calcium 9.2 mg/dL (8.4-10.2); Carbon Dioxide 28 mmol/L (22-30); Chloride 103 mmol/L (98-107); Glucose 90 mg/dL (74-99); Lipase 86 U/L (23-300); Non-African American GFR(CKD) >90 (>60 ml/min/1.73 sqM); Potassium 3.3 mmol/L (3.5-5.1); Sodium 140 mmol/L (137-145); Total Bilirubin 0.7 mg/dL (0.2-1.3); Total Protein 8.2 g/dL (6.3-8.2)
[2022-01-26 04:34] LABS: Appearance,Urine Cloudy (Clear); Bilirubin,Urine Negative (Negative); Blood,Urine Negative (Negative); Color,Urine Light Yellow; Glucose,Urine (UA) Negative (Negative); Ketones,Urine Negative (Negative); Leukocyte Esterase,Urine Small (Negative); Mucus,Urine Rare /hpf; Nitrite,Urine Negative (Negative); Protein,Urine Negative (Negative); RBC,Urine 1 /hpf (0-5); Specific Gravity,Urine 1.007 (1.001-1.035); Squamous Epithelial Cell,Urine 12 /hpf (0-4); Urobilinogen,Urine <2.0 mg/dL (<2.0); WBC,Urine 4 /hpf (0-5)
[2022-01-26] MEDS ORDERED: MAG HYDROX/AL HYDROX/SIMETH 30 ML, HYOSCYAMINE ELIXIR 10 ML, LIDOCAINE VISCOUS 2% 10 ML PO STA ×3 (05:10)
[2022-01-26 05:25] VITALS: BP 115/78; PULSE 96; RESP 16
--- NOTE | 2022-01-26 06:10 | ED ---
Abdominal Pain HPI - General Chief Complaint: Abdominal Pain Stated Complaint: Abd Pain Time Seen by Provider: 01/26/22 02:42 Source: patient Mode of arrival: ambulatory Limitations: no limitations - History of Present Illness MD Complaint: abdominal pain Onset/Timin -: hour(s) Location: epigastric Radiation: none Migration to: no migration Severity: moderate Quality: sharp Consistency: constant Improves With: nothing Worsens With: nothing Associated Symptoms: denies other symptoms - Related Data LMP (females 10-50): 3 weeks Patient : No Previous Rx's Medication Instructions Recorded Acetaminophen [Tylenol] 650 mg PO Q4H PRN #30 tab 11/04/20 Ibuprofen [Motrin] 600 mg PO Q8HR PRN #30 tab 11/04/20 Simethicone 40 mg/0.6 ml Drops 40 mg PO Q6HR PRN #30 ml 11/04/20 [Mylicon Drops] Famotidine [Pepcid] 20 mg PO BID #14 tablet 01/26/22 Allergies Allergy/AdvReac Type Severity Reaction Status Date / Time nickel Allergy Rash/Hives Verified 01/26/22 02:37 Review of Systems ROS Statement: Those systems with pertinent positive or pertinent negative responses have been documented in the HPI. ROS Other: All systems not noted in ROS Statement are negative. Constitutional: Denies: fever, chills Respiratory: Denies: cough, dyspnea Cardiovascular: Denies: chest pain, palpitations Gastrointestinal: Reports: abdominal pain. Denies: nausea, vomiting, diarrhea, constipation Genitourinary: Denies: dysuria, frequency, hematuria, discharge, abnormal menses Musculoskeletal: Denies: back pain Skin: Denies: rash Neurological: Denies: headache, weakness, numbness Past Medical History Past Medical History: No Reported History Additional Past Medical History / Comment(s): Abd pain for the past 3 months with gallstones. History of Any Multi-Drug Resistant Organisms: None Reported Past Surgical History: Cholecystectomy Additional Past Anesthesia/Blood Transfusion Reaction / Comment(s): Has never had anesthesia. Past Psychological History: Anxiety, Depression Smoking Status: Never smoker Past Alcohol Use History: Occasional Past Drug Use History: None Reported - Past Family History Mother Family Medical History: CVA/TIA General Exam Limitations: no limitations General appearance: alert, in no apparent distress Head exam: Present: atraumatic, normocephalic Eye exam: Present: normal appearance. Absent: scleral icterus, conjunctival injection Neck exam: Present: normal inspection Respiratory exam: Present: normal lung sounds bilaterally. Absent: respiratory distress, wheezes, rales, rhonchi, stridor Cardiovascular Exam: Present: regular rate, normal rhythm, normal heart sounds. Absent: systolic murmur, diastolic murmur, rubs, gallop GI/Abdominal exam: Present: soft, tenderness (Mild epigastric tenderness without rebound or guarding), normal bowel sounds. Absent: distended, guarding, rebound, rigid, mass, pulsatile mass, hernia Extremities exam: Present: normal inspection, normal capillary refill. Absent: pedal edema, calf tenderness Back exam: Present: normal inspection. Absent: CVA tenderness (R), CVA tenderness (L) Neurological exam: Present: alert Skin exam: Present: warm, dry, intact, normal color. Absent: rash Course Vital Signs 01/26/22 01/26/22 02:36 05:24 Temperature 98.6 F Pulse Rate 100 96 Respiratory 18 16 Rate Blood Pressure 138/84 115/78 O2 Sat by Pulse 99 98 Oximetry Medical Decision Making - Lab Data Result diagrams: 01/26/22 03:05 01/26/22 03:05 Lab Results 01/26/22 01/26/22 01/26/22 Range/Units 03:05 03:05 03:05 WBC 6.0 (3.8-10.6) k/uL RBC 4.90 (3.80-5.40) m/uL Hgb 13.8 (11.4-16.0) gm/dL Hct 41.8 (34.0-46.0) % MCV 85.4 (80.0-100.0) fL MCH 28.3 (25.0-35.0) pg MCHC 33.1 (31.0-37.0) g/dL RDW 13.9 (11.5-15.5) % Plt Count 213 (150-450) k/uL MPV 10.1 Neutrophils % 53 % Lymphocytes % 34 % Monocytes % 7 % Eosinophils % 2 % Basophils % 1 % Neutrophils # 3.2 (1.3-7.7) k/uL Lymphocytes # 2.0 (1.0-4.8) k/uL Monocytes # 0.4 (0-1.0) k/uL Eosinophils # 0.1 (0-0.7) k/uL Basophils # 0.1 (0-0.2) k/uL Hypochromasia Slight Sodium 140 (137-145) mmol/L Potassium 3.3 L (3.5-5.1) mmol/L Chloride 103 (98-107) mmol/L Carbon Dioxide 28 (22-30) mmol/L Anion Gap 9 mmol/L BUN 5 L (7-17) mg/dL Creatinine 0.57 (0.52-1.04) mg/dL Est GFR (CKD-EPI)AfAm >90 (>60 ml/min/1.73 sqM) Est GFR (CKD-EPI)NonAf >90 (>60 ml/min/1.73 sqM) Glucose 90 (74-99) mg/dL Plasma Lactic Acid Shane 1.3 (0.7-2.0) mmol/L Calcium 9.2 (8.4-10.2) mg/dL Total Bilirubin 0.7 (0.2-1.3) mg/dL AST 26 (14-36) U/L ALT 14 (4-34) U/L Alkaline Phosphatase 51 (38-126) U/L Total Protein 8.2 (6.3-8.2) g/dL Albumin 5.1 H (3.5-5.0) g/dL Amylase 60 (30-110) U/L Lipase 86 (23-300) U/L Urine Color Urine Appearance (Clear) Urine pH (5.0-8.0) Ur Specific [place] (1.001-1.035) Urine Protein (Negative) Urine Glucose (UA) (Negative) Urine Ketones (Negative) Urine Blood (Negative) Urine Nitrite (Negative) Urine Bilirubin (Negative) Urine Urobilinogen (<2.0) mg/dL Ur Leukocyte Esterase (Negative) Urine RBC (0-5) /hpf Urine WBC (0-5) /hpf Ur Squamous Epith Cells (0-4) /hpf Urine Mucus (None) /hpf Urine HCG, Qual (Not Detectd) 01/26/22 01/26/22 Range/Units 04:10 04:10 WBC (3.8-10.6) k/uL RBC (3.80-5.40) m/uL Hgb (11.4-16.0) gm/dL Hct (34.0-46.0) % MCV (80.0-100.0) fL MCH (25.0-35.0) pg MCHC (31.0-37.0) g/dL RDW (11.5-15.5) % Plt Count (150-450) k/uL MPV Neutrophils % % Lymphocytes % % Monocytes % % Eosinophils % % Basophils % % Neutrophils # (1.3-7.7) k/uL Lymphocytes # (1.0-4.8) k/uL Monocytes # (0-1.0) k/uL Eosinophils # (0-0.7) k/uL Basophils # (0-0.2) k/uL Hypochromasia Sodium (137-145) mmol/L Potassium (3.5-5.1) mmol/L Chloride (98-107) mmol/L Carbon Dioxide (22-30) mmol/L Anion Gap mmol/L BUN (7-17) mg/dL Creatinine (0.52-1.04) mg/dL Est GFR (CKD-EPI)AfAm (>60 ml/min/1.73 sqM) Est GFR (CKD-EPI)NonAf (>60 ml/min/1.73 sqM) Glucose (74-99) mg/dL Plasma Lactic Acid Shane (0.7-2.0) mmol/L Calcium (8.4-10.2) mg/dL Total Bilirubin (0.2-1.3) mg/dL AST (14-36) U/L ALT (4-34) U/L Alkaline Phosphatase (38-126) U/L Total Protein (6.3-8.2) g/dL Albumin (3.5-5.0) g/dL Amylase (30-110) U/L Lipase (23-300) U/L Urine Color Light Yellow Urine Appearance Cloudy H (Clear) Urine pH 7.0 (5.0-8.0) Ur Specific [place] 1.007 (1.001-1.035) Urine Protein Negative (Negative) Urine Glucose (UA) Negative (Negative) Urine Ketones Negative (Negative) Urine Blood Negative (Negative) Urine Nitrite Negative (Negative) Urine Bilirubin Negative (Negative) Urine Urobilinogen <2.0 (<2.0) mg/dL Ur Leukocyte Esterase Small H (Negative) Urine RBC 1 (0-5) /hpf Urine WBC 4 (0-5) /hpf Ur Squamous Epith Cells 12 H (0-4) /hpf Urine Mucus Rare H (None) /hpf Urine HCG, Qual Not Detected (Not Detectd) Disposition Clinical Impression: Gastritis Disposition: HOME SELF-CARE Condition: Good Prescriptions: Famotidine [Pepcid] 20 mg PO BID #14 tablet Is patient prescribed a controlled substance at d/c from ED?: No Referrals: Concepción Dc III, MD [Primary Care Provider] - 1-2 days
== END 2022-01-26 06:18 | disposition home or self-care (01) ==
LOC: EC 02:30
DX: F41.9 Anxiety disorder, unspecified (principal); F32.A Depression, unspecified; K29.70 Gastritis, unspecified, without bleeding; Z79.899 Other long term (current) drug therapy
CPT/HCPCS: 36415; 80053; 81001; 81025; 82150; 83605; 83690; 85025; 96360; 96361; 99284

== ENCOUNTER → 2022-04-06 | Outpatient (CLI) | payer OTHER ==
--- NOTE | 2022-04-06 11:47 | US ---
EXAMINATION TYPE: Transabdominal DATE OF EXAM: 04/06/2022 10:59 AM COMPARISON: OB ultrasound 09/25/2020 CLINICAL HISTORY: Z36.89 CONFIRM GESTATIONAL AGE AND VIABILITY. Dates. EXAM PERFORMED: Transabdominal (TA) EXAM MEASUREMENTS: GESTATIONAL AGE / DATING Physician Established: Not yet established Dates by LMP: (8 weeks/2 days) EDC: 11/14/2022 Dates by First Scan: No previous this is first scan Dates by Current Scan for: ( 7 weeks/6 days) EDC: 11/17/2022 MATERNAL ANATOMY Uterus: 9.4 x 8.0 x 6.7 cm Right Ovary: 3.1 x 2.2 x 1.9 cm Left Ovary: 3.0 x 1.9 x 1.7 cm Post CDS / Adnexa: no free fluid Presence of free fluid: no Presence of corpus luteal cyst: right ovary = 1.8 x 1.6 x 1.4 cm Presence of subchorionic bleed: no GESTATION / SURVEY CRL: 1.5 cm (7 weeks/6 days) MSD: seen, not measured Yolk Sac (normal less than 6mm): 2.6 mm Heart Rate: 169 bpm Rhythm: Normal IUP: Viable IUP Date of LMP: 02/07/2022, Beta HcG (if available): Not available at this time Single live intrauterine gestation. IMPRESSION: Single live intrauterine gestation with estimated gestational age of 7 weeks 6 days and estimated due date of 11/17/22.
== END | disposition home or self-care (01) ==
LOC: RADUSWWP 10:17
PROVIDERS: ATTEND Obstetrics & Gynecology
DX: Z36.89 Encounter for other specified antenatal screening (principal); Z3A.01 Less than 8 weeks gestation of pregnancy
CPT/HCPCS: 76801

== ENCOUNTER 2022-08-03 20:12 | Outpatient (CLI) | payer OTHER ==
[2022-08-03] MEDS ORDERED: LACTATED RINGERS 1,000 ML IV SCH (20:45)
[2022-08-03] MEDS ORDERED: ACETAMINOPHEN IV (For NPO) 1,000 MG in EMPTY BAG 1 BAG IVPB STA (20:50)
[2022-08-03 21:03] LABS: Appearance,Urine Cloudy (Clear); Bacteria,Urine Many /hpf; Bilirubin,Urine Negative (Negative); Blood,Urine Large (Negative); Color,Urine Yellow; Glucose,Urine (UA) Negative (Negative); Ketones,Urine Trace (Negative); Leukocyte Esterase,Urine Large (Negative); Mucus,Urine Occasional /hpf; Nitrite,Urine Negative (Negative); Protein,Urine Trace (Negative); RBC,Urine 52 /hpf (0-5); Squamous Epithelial Cell,Urine 53 /hpf (0-4); Urobilinogen,Urine <2.0 mg/dL (<2.0); WBC,Urine >182 /hpf (0-5)
[2022-08-03 21:13] LABS: Basophils % (A) 0 %; Eosinophils # (A) 0.1 k/uL (0-0.7); Eosinophils % (A) 2 %; HCT 35.2 % (34.0-46.0); HGB 11.5 gm/dL (11.4-16.0); Lymphocytes # (A) 1.1 k/uL (1.0-4.8); Lymphocytes % (A) 18 %; MCH 29.5 pg (25.0-35.0); MCHC 32.6 g/dL (31.0-37.0); MCV 90.5 fL (80.0-100.0); Mean Platelet Volume 8.3; Monocytes # (A) 0.3 k/uL (0-1.0); Monocytes % (A) 5 %; Neutrophils # (A) 4.6 k/uL (1.3-7.7); Neutrophils % (A) 73 %; Platelet Count 220 k/uL (150-450); RBC 3.89 m/uL (3.80-5.40); RDW 15.3 % (11.5-15.5); WBC 6.4 k/uL (3.8-10.6)
[2022-08-03 21:51] VITALS: BP 125/62; PULSE 106; RESP 16; TEMP 96.9
--- NOTE | 2022-09-06 19:06 | P.MSEPDOC ---
Presenting Problems - Arrival Data Date of Arrival on Unit: 08/03/22 Time of Arrival on Unit: 20:12 Mode of Transport: Ambulatory - Complaint OB-Reason for Admission/Chief Complaint: Pain Comment: pt. presents to triage due to bleeding only when patient pees, pt. states. she feels bladder discomfort, and pain with urination, and now starting to get pain to. lower back/ bilat flank pain, pt. states she can feel burning in her urthethra when she. pees, pt. states this started on saturday night and started taking AZOs for possible UTI,. pt. states she is on amoxicillin for a tooth infection last took both meds yesturday Medical History - Information : 4 Para: 1 Term: 1 : 0 Abortions: Spontaneous or Elective: 2 Number of Living Children: 1 - Gestational Age Gestational Age by SASKIA (wks/days): 25 Weeks and 2 Days Review of Systems - Review of Systems Constitutional: No problems Breast: No problems ENT: No problems Cardiovascular: No problems Respiratory: No problems Gastrointestinal: No problems Genitourinary: Dysuria Musculoskeletal: No problems Neurological: No problems Skin: No problems Vital Signs - Temperature Temperature: 96.9 F Temperature Source: Oral - Pulse Pulse Oximetery Pulse Rate: 106 Pulse Assessment Method: Automatic Cuff - Respirations Respiratory Rate: 16 Oxygen Delivery Method: Room Air O2 Sat by Pulse Oximetry: 98 - Blood Pressure Right Arm Blood Pressure: 125/62 Blood Pressure Mean: 83 Blood Pressure Source: Automatic Cuff Medical Screen Scoring - Assessment - Baby A Baseline FHR: 140 Heart Rate - NICHD Category: Category I (Normal) NST: Reactive Physician Notification - Physician Notified Physician Notified Date: 08/03/22 Physician Notified Time: 20:40 Physician: Jenny Wilburn New Order Received: Yes - Notification Comment Comment: CBC, urinaylsis with reflux to culture, 2g Kefzol given, 1Liter LR given, ofirmev for pain given. orders to discharge pt. Macrobid and difucan sent to pt. pharmacy, pt. instructed to follow up with Dr. Suero next week and to increase fluid intake. pt. states understanding of discharge instructions Maternal Triage Index - Maternal Triage Index Presenting for scheduled procedure w/no complaint: No - Stat/Priority 1 Stat Priority 1: No - Urgent/Priority 2 Urgent Priority 2: Yes Provider Notified: Jenny Wilburn Provider Notified Time: 20:40 Criteria Met for Priority 2: 25weeks and 2 days, urinary symtomps, bleeding with urination, left flank pain 7/10, bladder discomfort, white yeasty discharge - Prompt/Priority 3 Prompt Priority 3: No - Non-Urgent/Priority 4 Non-Urgent Priority 4: No Disposition - Disposition OB Disposition: Discharge to home Discharge Date: 08/03/22 Discharge Time: 21:51 I agree with the RN Medical Screening Exam: Yes Case reviewed; plan agreed upon as documented in EMR&OBIX.: Yes Diagnosis: RELATED CONDITIONS, UNSPECIFIED, SECOND TRIMESTER
== END 2022-08-03 21:51 | disposition home or self-care (01) ==
LOC: FBPOP 20:12
PROVIDERS: ATTEND Obstetrics & Gynecology Obstetrics
DX: O26.892 Other specified pregnancy related conditions, second trimester (principal); R52 Pain, unspecified; Z3A.25 25 weeks gestation of pregnancy; Z91.048 Other nonmedicinal substance allergy status
CPT/HCPCS: 96361; 96365; 96367; 36415; 85025; 81001; 87086; G0463; J0690; J0131; 59025; 96360; 96366; 99214

== ENCOUNTER 2022-08-30 15:40 | Outpatient (CLI) | payer OTHER ==
[2022-08-30 17:06] LABS: Appearance,Urine Cloudy (Clear); Bilirubin,Urine Negative (Negative); Blood,Urine Negative (Negative); Color,Urine Yellow; Glucose,Urine (UA) Negative (Negative); Ketones,Urine 3+ (Negative); Leukocyte Esterase,Urine Large (Negative); Mucus,Urine Many /hpf; Nitrite,Urine Negative (Negative); Protein,Urine 1+ (Negative); RBC,Urine 2 /hpf (0-5); Squamous Epithelial Cell,Urine 3 /hpf (0-4); WBC,Urine 10 /hpf (0-5)
[2022-08-30 18:39] VITALS: BP 113/66; PULSE 103; RESP 16; TEMP 98.8
--- NOTE | 2022-09-27 10:46 | P.MSEPDOC ---
Presenting Problems - Arrival Data Date of Arrival on Unit: 08/30/22 Time of Arrival on Unit: 15:45 Mode of Transport: Ambulatory - Complaint OB-Reason for Admission/Chief Complaint: Decreased Movement Comment: Pt here complaining of decreased movement the last couple days, also complaining of back and lower pelvic cramping Medical History - Information : 4 Para: 1 Term: 1 : 0 Abortions: Spontaneous or Elective: 2 Number of Living Children: 1 - Gestational Age Gestational Age by SASKIA (wks/days): 29 Weeks and 1 Days Review of Systems - Review of Systems Constitutional: No problems Breast: No problems ENT: No problems Cardiovascular: No problems Respiratory: No problems Gastrointestinal: No problems Genitourinary: No problems Musculoskeletal: No problems Neurological: No problems Skin: No problems Vital Signs - Temperature Temperature: 98.8 F Temperature Source: Oral - Pulse Pulse Oximetery Pulse Rate: 103 Pulse Assessment Method: Automatic Cuff - Respirations Respiratory Rate: 16 Oxygen Delivery Method: Room Air O2 Sat by Pulse Oximetry: 97 - Blood Pressure Right Arm Sitting Blood Pressure: 113/66 Blood Pressure Mean: 81 Blood Pressure Source: Automatic Cuff Medical Screen Scoring - Cervical Exam Dilation (cm): 0.5 Effacement (%): 0 Station: -3 Membranes: Intact - Uterine Contractions Frequency From (mins): 0 Frequency To (mins): 0 - Assessment - Baby A Baseline FHR: 135 Heart Rate - NICHD Category: Category I (Normal) Physician Notification - Physician Notified Physician Notified Date: 08/30/22 Physician Notified Time: 16:27 Physician: Han Adiar - Notification Comment Comment: urine sent for culture, pt encouraged to orally hydrate at home. Maternal Triage Index - Maternal Triage Index Presenting for scheduled procedure w/no complaint: No - Stat/Priority 1 Stat Priority 1: No - Urgent/Priority 2 Urgent Priority 2: No - Prompt/Priority 3 Prompt Priority 3: Yes Criteria Met for Priority 3: No regular contractions noted Disposition - Disposition OB Disposition: Discharge to home, Written follow up instructions reviewed Discharge Date: 08/30/22 Discharge Time: 17:45 I agree with the RN Medical Screening Exam: Yes Physician's MSE Comment: I have neither seen nor examined the patient. Case reviewed; plan agreed upon as documented in EMR&OBIX.: Yes Diagnosis: RELATED CONDITIONS, UNSPECIFIED, THIRD TRIMESTER
== END 2022-08-30 17:45 | disposition home or self-care (01) ==
LOC: FBPOP 15:40
PROVIDERS: ATTEND Obstetrics & Gynecology
DX: O36.8131 Decreased fetal movements, third trimester, fetus 1 (principal); Z3A.29 29 weeks gestation of pregnancy; Z91.048 Other nonmedicinal substance allergy status
CPT/HCPCS: 59025; 82731; 81001; 87086; G0463; 99213

== ENCOUNTER 2022-11-17 22:27 | Inpatient (IN) | payer OTHER ==
[2022-11-17] MEDS ORDERED: CARBOPROST TROMETHAMINE 250 MCG/ML 1 ML AMP IM PRN (23:37)
[2022-11-17] MEDS ORDERED: OXYTOCIN 10 UNIT/ML 1 ML VIAL IM PRN (23:37)
[2022-11-17] MEDS ORDERED: METHYLERGONOVINE 0.2 MG/ML 1 ML AMP IM PRN (23:37)
[2022-11-17] MEDS ORDERED: TERBUTALINE 1 MG/ML VIAL SQ PRN (23:37)
[2022-11-17] MEDS ORDERED: LIDOCAINE 0.5% (PF) 5 MG/ML (50 ML SDV) SQ PRN (23:37)
[2022-11-17] MEDS ORDERED: TRANEXAMIC 1,000 MG/100ML-NACL 1,000 MG in EMPTY BAG 1 BAG IV PRN (23:37)
[2022-11-17] MEDS ORDERED: miSOPROStoL 200 MCG TAB PO PRN (23:37)
[2022-11-17] MEDS ORDERED: OXYTOCIN 30 UNITS/500 ML NS 30 UNIT in SALINE 1 500ML.BAG IV SCH (23:45)
[2022-11-17 23:54] LABS: Basophils % (A) 1 %; Eosinophils # (A) 0.2 k/uL (0-0.7); Eosinophils % (A) 2 %; HCT 32.8 % (34.0-46.0); HGB 10.6 gm/dL (11.4-16.0); Hypochromasia Slight; Lymphocytes # (A) 2.4 k/uL (1.0-4.8); Lymphocytes % (A) 26 %; MCH 26.6 pg (25.0-35.0); MCHC 32.3 g/dL (31.0-37.0); MCV 82.3 fL (80.0-100.0); Mean Platelet Volume 8.6; Monocytes # (A) 0.7 k/uL (0-1.0); Monocytes % (A) 7 %; Neutrophils # (A) 5.7 k/uL (1.3-7.7); Neutrophils % (A) 62 %; Platelet Count 284 k/uL (150-450); RBC 3.98 m/uL (3.80-5.40); RDW 15.6 % (11.5-15.5); WBC 9.1 k/uL (3.8-10.6)
[2022-11-17] MEDS ORDERED: NALBUPHINE 10 MG/ML (10 ML MDV) IV PRN (23:56)
--- NOTE | 2022-11-18 03:13 | P.HPOB ---
History of Present Illness H&P Date: 11/18/22 Chief Complaint: Labor at 40-4/7 This is a 22-year-old 4 para 10-1 woman with an estimated due date of 11/14/2022 who presents in spontaneous active labor at 40-4/7 weeks' gestation. Her has been complicated by first trimester chlamydia that was treated with negative test of cure. She also has a history of anxiety and depression. Obstetric history is history is significant for term vaginal delivery in 2019, and voluntary termination of in 2020 and spontaneous miscarriage in 2020. Laboratory data: blood type O positive, antibody screen negative, rubella immune, VDRL nonreactive, hepatitis the surface antigen negative, HIV negative, glucose tolerance testing within normal limits, group B strep negative Review of Systems All systems: negative Past Medical History Past Medical History: No Reported History Additional Past Medical History / Comment(s): Abd pain for the past 3 months with gallstones. History of Any Multi-Drug Resistant Organisms: None Reported Past Surgical History: Cholecystectomy Past Anesthesia/Blood Transfusion Reactions: No Reported Reaction Additional Past Anesthesia/Blood Transfusion Reaction / Comment(s): Has never had anesthesia. Past Psychological History: Anxiety, Depression Smoking Status: Never smoker Past Alcohol Use History: Occasional Past Drug Use History: None Reported - Past Family History Mother Family Medical History: CVA/TIA Medications and Allergies Home Medications Medication Instructions Recorded Confirmed Type Vit No.179/Iron/Folic 1 each PO DAILY 08/03/22 11/17/22 History [ Tablet] Allergies Allergy/AdvReac Type Severity Reaction Status Date / Time nickel Allergy Rash/Hives Verified 11/17/22 22:35 Exam Vital Signs Temp Pulse Resp BP Pulse Ox 11/17/22 23:57 96.9 F L 94 15 121/79 11/17/22 22:34 96.9 F L 94 16 121/79 99 Intake and Output 11/17/22 11/17/22 11/18/22 14:59 22:59 06:59 Other: Weight 72.575 kg 72.575 kg The comfortable but actively laboring and visibly gravid female. Targeted physical exam is performed. Cervix is 5 cm dilated 50% effaced and the vertex in the -2 station. Artificial rupture membranes is undertaken and light meconium-stained fluid is noted. heart tones are category 1. She is dominick every 4-5 minutes spontaneously. Results Result Diagrams: 11/17/22 23:10 Abnormal Lab Results - Last 24 Hours (Table) 11/17/22 Range/Units 23:10 Hgb 10.6 L (11.4-16.0) gm/dL Hct 32.8 L (34.0-46.0) % RDW 15.6 H (11.5-15.5) % Assessment and Plan (1) Post-dates Current Visit: Yes Status: Acute Code(s): O48.0 - POST-TERM SNOMED Code(s): 04349855 (2) Spontaneous onset of labor Current Visit: Yes Status: Acute Code(s): IDX3149 - SNOMED Code(s): 54700353 Plan: 22-year-old 4 para 10-1 woman admitted at 40-4/7 weeks gestation in spontaneous labor. status currently reassuring. She declines analgesia at this time. She is group B strep negative and Rh+. Anticipate normal spontaneous vaginal delivery.
[2022-11-18] MEDS ORDERED: diphenhydrAMINE 25 MG CAP PO PRN (04:40)
[2022-11-18] MEDS ORDERED: diphenhydrAMINE 50 MG/ML 1 ML VIAL IVP PRN ×2 (04:40)
[2022-11-18] MEDS ORDERED: BENZOCAINE/MENTHOL SPRAY 1 GM/SPRAY AEROSOL TOPICAL PRN (04:40)
[2022-11-18] MEDS ORDERED: LANOLIN CREAM 5 GM TUBE TOPICAL PRN (04:40)
[2022-11-18] MEDS ORDERED: ZOLPIDEM 5 MG TAB PO PRN (04:40)
[2022-11-18] MEDS ORDERED: diphenhydrAMINE 50 MG CAP PO PRN (04:40)
[2022-11-18] MEDS ORDERED: SIMETHICONE 80 MG CHEWABLE PO PRN (04:40)
[2022-11-18] MEDS ORDERED: HYDROCORTISONE 2.5% RECTAL CREAM 30 GM TUBE RECTAL PRN (04:40)
--- NOTE | 2022-11-18 04:40 | P.PROBDLV ---
Vaginal Delivery Note - . Vaginal Delivery Note: Findings: Female in the vertex presentation with Apgars of 8 at 1 minute and 8 at 5 minutes weighing 8 lbs. 6 oz., 3310 g, calcified three-vessel cord placenta, second-degree perineal laceration, EBL 200 mL's. Delivery summary: This is a 22-year-old 4 para 10-1 woman who presented in spontaneous active labor at 40-4/7 weeks' gestation. Following admission she underwent artificial rupture of membranes and clear fluid was noted. She had a rapid progression to complete cervical dilation. She did have some terminal bradycardia in the second stage of labor. With she was positioned, prepped and draped in the dorsal modified Charissa position. With maternal effort 3 she did deliver the vertex from the left occiput anterior position. The anterior followed by the posterior shoulders were delivered without difficulty and the rest of the infant was delivered onto the field. The nose and mouth were bulb suctioned and the infant was placed on the maternal abdomen. The cord was clamped and cut. Apgars 8 at 1 minute and 8 at 5 minutes. On the perineum was inspected and a second-degree laceration was noted. This was infused with lidocaine and repaired with 3-0 Vicryl suture in the usual fashion. An intact but calcified three-vessel cord placenta was then expressed after an approximately 10 minute third stage of labor. The uterus was massaged and was noted to be firm at the umbilicus. The rest the vagina was inspected and no further lacerations were noted. EBL was approximately 200 mL's. Counts were correct. Mother and were doing well post delivery in the room.
[2022-11-18] MEDS: LACTATED RINGERS 1,000 ML IV SCH ×2 (05:20→09:01)
[2022-11-18] MEDS: IBUPROFEN 600 MG TAB PO PRN ×3 (05:26→17:54)
[2022-11-18] MEDS: SENNOSIDES-DOCUSATE SODIUM 1 EACH TAB PO SCH ×2 (08:49→20:22)
[2022-11-18 12:12] VITALS: RESP 16
[2022-11-18] MEDS: ACETAMINOPHEN TAB 325 MG TAB PO PRN (22:17)
[2022-11-19] MEDS: IBUPROFEN 600 MG TAB PO PRN ×2 (02:37→09:44)
[2022-11-19] MEDS: ACETAMINOPHEN TAB 325 MG TAB PO PRN ×2 (05:03→11:00)
[2022-11-19 08:05] VITALS: BP 90/49; PULSE 91; TEMP 98.2
[2022-11-19 08:19] LABS: Basophils % (A) 1 %; Eosinophils # (A) 0.1 k/uL (0-0.7); Eosinophils % (A) 2 %; HCT 27.8 % (34.0-46.0); Hypochromasia Moderate; Lymphocytes # (A) 1.8 k/uL (1.0-4.8); Lymphocytes % (A) 28 %; MCH 26.8 pg (25.0-35.0); MCHC 32.1 g/dL (31.0-37.0); MCV 83.5 fL (80.0-100.0); Mean Platelet Volume 8.8; Monocytes # (A) 0.4 k/uL (0-1.0); Monocytes % (A) 6 %; Neutrophils # (A) 3.9 k/uL (1.3-7.7); Neutrophils % (A) 61 %; Platelet Count 225 k/uL (150-450); RBC 3.33 m/uL (3.80-5.40); RDW 15.6 % (11.5-15.5); WBC 6.4 k/uL (3.8-10.6)
[2022-11-19 08:21] LABS: HGB 8.9 gm/dL (11.4-16.0)
--- NOTE | 2022-11-19 08:53 | P.DS ---
Providers Date of admission: 11/17/22 23:41 Expected date of discharge: 11/19/22 Attending physician: aHn Adair Primary care physician: Stated None - Discharge Diagnosis(es) (1) Post-dates Current Visit: Yes Status: Acute (2) Spontaneous onset of labor Current Visit: Yes Status: Acute (3) Normal spontaneous vaginal delivery Current Visit: Yes Status: Acute (4) Perineal laceration with delivery, second degree Current Visit: Yes Status: Acute Hospital Course: This is a 22-year-old 4 now para 20-2 woman who presented at 40-4/7 weeks gestation in spontaneous active labor. Following admission she had a rapid and unremarkable first stage of labor. Should a second stage of labor with the terminal bradycardia however went on to deliver a liveborn female infant over second-degree perineal laceration with Apgars of 8 at 1 minute and 8 at 5 minutes weighing 8 lbs. 6 oz. Please see delivery summary for details. Patient's course was entirely unremarkable. By day #1 she was ambulating and voiding without difficulty, her lochia was moderate and her vital signs were stable. She had some mild postdelivery anemia. She was breast-feeding successfully and was therefore discharged home with routine instructions for care and follow-up. Patient Condition at Discharge: Good Plan - Discharge Summary New Discharge Prescriptions: No Action Vit No.179/Iron/Folic [ Tablet] 1 each PO DAILY Discharge Medication List Vit No.179/Iron/Folic [ Tablet] 1 each PO DAILY 08/03/22 [History] Follow up Appointment(s)/Referral(s): Han Adair MD [STAFF PHYSICIAN] - 6 Weeks Activity/Diet/Wound Care/Special Instructions: Follow-up in the office in 6 weeks . Call with any concerning signs or symptoms including heavy vaginal bleeding, severe abdominal pain, fever greater than 101, swelling or redness of the lower extremities, foul vaginal discharge, or signs of depression. Nothing in the vagina for 6 weeks after delivery, specifically no intercourse.
--- NOTE | 2022-11-21 15:32 | CDI ---
Documentation Clarification Form Date: 11/21/2022 03:09:05 PM From: Akua Salazar Admit Date: 11/17/2022 11:41:00 PM Patient Name: Nehal Rowland Visit Number: [id number] Discharge Date: 11/19/2022 12:29:00 PM ATTENTION: The Clinical Documentation Specialists (CDI) and [facility] Coding Staff appreciate your assistance in clarifying documentation. Please respond to the clarification below the line at the bottom and electronically sign. The CDI & [facility] Coding staff will review the response and follow-up if needed. Please note: Queries are made part of the Legal Health Record. If you have any questions, please contact the author of this message via ITS. Dr. Leticia Reynolds Mild post-delivery anemia is documented in the discharge summary 11/19/22. Additional specificity regarding the type and acuity of anemia is requested. History/Risk Factors: patient is a 22 year old female 4 para 1 who presented at 40-4/7 weeks gestation in spontaneous active labor. Clinical indicators: patient had a rapid first stage of labor, experienced some terminal bradycardia in the second stage of labor, she was positioned in a dorsal modified Charissa position, delivered viable female . 2nd degree laceration was noted and EBL was approx. 200mLs. Hemoglobin: 11/17/22: 10.6 11/19/22: 8.9 Hematocrit: 11/17/22: 32.8 11/19/22: 27.8 Treatment: discharged on vitamin Please clarify the type and acuity of anemia: [ x ] Acute blood loss anemia [ ] Acute on chronic blood loss anemia [ ] Unable to determine [ ] Other, please specify MTDD
== END 2022-11-19 12:29 | disposition home or self-care (01) | DRG 560 ==
LOC: FBPOP 22:27 → 4FBP 23:41
PROVIDERS: ADMIT Obstetrics & Gynecology; ATTEND Obstetrics & Gynecology
PROC: 10E0XZZ Delivery of Products of Conception, External Approach (ICD-10-PCS; principal; 2022-11-18)
PROC: 10907ZC Drainage of Amniotic Fluid, Therapeutic from Products of Conception, Via Natural or Artificial Opening (ICD-10-PCS; principal; 2022-11-18)
PROC: 0KQM0ZZ Repair Perineum Muscle, Open Approach (ICD-10-PCS; principal; 2022-11-18)
DX: O48.0 Post-term pregnancy (principal); O99.02 Anemia complicating childbirth; D62 Acute posthemorrhagic anemia; O99.344 Other mental disorders complicating childbirth; F41.9 Anxiety disorder, unspecified; F32.A Depression, unspecified; O77.0 Labor and delivery complicated by meconium in amniotic fluid; O70.1 Second degree perineal laceration during delivery; O62.3 Precipitate labor; O76 Abnormality in fetal heart rate and rhythm complicating labor and delivery; O43.893 Other placental disorders, third trimester; Z28.310 Unvaccinated for COVID-19; Z3A.40 40 weeks gestation of pregnancy; Z37.0 Single live birth
CPT/HCPCS: 36415; 59025; 85025; 86803; 86850; 86900; 86901; 99213

== ENCOUNTER 2023-08-03 15:36 | Emergency (ER) | payer OTHER ==
[2023-08-03] MEDS: TOPICAL SKIN ADHESIVE 1 EACH AMP TOPICAL ONE (15:49)
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
[2023-08-03 16:05] VITALS: RESP 20
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
[2023-08-03 17:36] VITALS: BP 127/85; PULSE 98; TEMP 98.1
== END 2023-08-03 17:30 | disposition home or self-care (01) ==
LOC: EC 15:36
DX: S01.81XA Laceration without foreign body of other part of head, initial encounter (principal); Z91.048 Other nonmedicinal substance allergy status; Z90.49 Acquired absence of other specified parts of digestive tract; Y04.8XXA Assault by other bodily force, initial encounter
CPT/HCPCS: 12001; 70450; 70486; 99284

== ENCOUNTER 2023-09-28 16:38 | Emergency (ER) | payer OTHER ==
--- NOTE | 2023-09-28 16:57 | ED ---
Female Urogenital HPI - General Chief complaint: Vaginal Bleeding Stated complaint: 5wks preg, vaginal bleeding Time Seen by Provider: 09/28/23 16:53 Source: patient, RN notes reviewed Mode of arrival: ambulatory Limitations: no limitations - History of Present Illness Initial comments: 23-year-old female presenting to the ER with a chief complaint of vaginal bleeding. Patient is approximately 5 weeks gestation based off last menstrual cycle. She is scheduled to see Dr. Serrano on October 23. Patient states about 1 hour prior to arrival she felt a gush in her underwear and when she went to the bathroom she noticed bright red blood. She is also endorsing bilateral lower abdominal cramping. She denies any nausea, vomiting, fevers or chills. She does report a previous miscarriage. She does report she is currently being treated with clindamycin for UTI. Patient denies any chest pain, shortness of breath or peripheral edema. - Related Data Home Medications Medication Instructions Recorded Confirmed Vit No.179/Iron/Folic 1 each PO DAILY 08/03/22 11/17/22 [ Tablet] Allergies Allergy/AdvReac Type Severity Reaction Status Date / Time nickel Allergy Rash/Hives Verified 09/28/23 16:43 Review of Systems ROS Statement: Those systems with pertinent positive or pertinent negative responses have been documented in the HPI. ROS Other: All systems not noted in ROS Statement are negative. Past Medical History Past Medical History: No Reported History Additional Past Medical History / Comment(s): Abd pain for the past 3 months with gallstones. History of Any Multi-Drug Resistant Organisms: None Reported Past Surgical History: Cholecystectomy Past Anesthesia/Blood Transfusion Reactions: No Reported Reaction Additional Past Anesthesia/Blood Transfusion Reaction / Comment(s): Has never had anesthesia. Past Psychological History: Anxiety, Depression Smoking Status: Never smoker Past Alcohol Use History: Occasional Past Drug Use History: None Reported - Past Family History Mother Family Medical History: CVA/TIA General Exam Limitations: no limitations General appearance: alert, in no apparent distress Respiratory exam: Present: normal lung sounds bilaterally. Absent: respiratory distress, wheezes, rales, rhonchi, stridor Cardiovascular Exam: Present: regular rate, normal rhythm, normal heart sounds. Absent: systolic murmur, diastolic murmur, rubs, gallop, clicks GI/Abdominal exam: Present: soft, tenderness (suprapubic), normal bowel sounds. Absent: distended, guarding, rebound, rigid Neurological exam: Present: alert, oriented X3, CN II-XII intact Skin exam: Present: warm, dry, intact, normal color. Absent: rash Course Vital Signs 09/28/23 16:40 Temperature 98.3 F Pulse Rate 101 H Respiratory 16 Rate Blood Pressure 104/68 O2 Sat by Pulse 100 Oximetry Medical Decision Making - Medical Decision Making Was pt. sent in by a medical professional or institution (, PA, ECONOMIC MANAGER, urgent care, hospital, or care home...) When possible be specific @ -No Did you speak to anyone other than the patient for history (EMS, parent, family, police, friend...)? What history was obtained from this source @ -No Did you review nursing and triage notes (agree or disagree)? Why? @ -I reviewed and agree with nursing and triage notes Were old charts reviewed (outside hosp., previous admission, EMS record, old EKG, old radiological studies, urgent care reports/EKG's, care home records)? Report findings @ -No old charts were reviewed Differential Diagnosis (chest pain, altered mental status, abdominal pain women, abdominal pain men, vaginal bleeding, weakness, fever, dyspnea, syncope, headache, dizziness, GI bleed, back pain, seizure, CVA, palpatations, mental health, musculoskeletal)? @ -Differential Vaginal Bleeding: Spontaneous , threatened , molar , ectopic , bloody show, incompetent cervix, abruptioplacenta, placenta previa, uterine rupture, dysfunctional uterine bleeding, hemorrhage, uterine fibroids, this is not meant to be an all-inclusive list. EKG interpreted by me (3pts min.). @ -None X-rays interpreted by me (1pt min.). @ -None done CT interpreted by me (1pt min.). @ -None done U/S interpreted by me (1pt. min.). @ - ultrasound significant for gestational sac in the uterus. No pole or yolk sac seen. There is a subchorionic bleed present measuring at 1.8 x 1.1 x 1.0. What testing was considered but not performed or refused? (CT, X-rays, U/S, labs)? Why? @ -None What meds were considered but not given or refused? Why? @ -None Did you discuss the management of the patient with other professionals (professionals i.e. DrMarquez, PA, ECONOMIC MANAGER, lab, RT, psych nurse, aids social worker, pier master, teacher, strategic debriefing officer, case finishing machine adjuster)? Give summary @ -No Was smoking cessation discussed for >3mins.? @ -No Was critical care preformed (if so, how long)? @ -No Were there social determinants of health that impacted care today? How? (Homelessness, low income, unemployed, alcoholism, drug addiction, transportation, low edu. Level, literacy, decrease access to med. care, penitentiary, rehab)? @ -No Was there de-escalation of care discussed even if they declined (Discuss DNR or withdrawal of care, Hospice)? DNR status @ -No What co-morbidities impacted this encounter? (DM, HTN, Smoking, COPD, CAD, Cancer, CVA, ARF, Chemo, Hep., AIDS, mental health diagnosis, sleep apnea, morbid obesity)? @ - Was patient admitted / discharged? Hospital course, mention meds given and route, prescriptions, significant lab abnormalities, going to OR and other p ertinent info. @ -Discharge. 23-year-old female presented to ER with chief complaint vaginal bleeding. History and physical exam completed. Vitals stable. Patient no signs of acute distress and nontoxic-appearing. Exam remarkable for suprapubic abdominal tenderness with normal bowel sounds. Laboratory studies obtained remarkable for stable hemoglobin at 11.7. Serum hCG 5670. Urinalysis showing trace blood which is likely contaminated from vaginal bleeding. ultrasound only showing an intrauterine gestational sac. There is no yolk sac or pole seen. Subchorionic bleed present. Patient's blood type is O+ not a candidate for RhoGAM. Upon reevaluation, patient resting comfortably in exam room in no signs of acute distress. Results discussed with patient, all questions answered. Advise close follow-up with [employer] COACH, Dr. Adair. Strict return parameters discussed. Patient discharged stable condition. Patient verbally stressed understanding agree with care plan. Case discussed with ED attending, . Undiagnosed new problem with uncertain prognosis? @ -No Drug Therapy requiring intensive monitoring for toxicity (Heparin, Nitro, Insulin, Cardizem)? @ -No Were any procedures done? @ -No Diagnosis/symptom? @ -Threatened /subchorionic bleed Acute, or Chronic, or Acute on Chronic? @ -Acute Uncomplicated (without systemic symptoms) or Complicated (systemic symptoms)? @ -Uncomplicated Side effects of treatment? @ -No Exacerbation, Progression, or Severe Exacerbation? @ -No Poses a threat to life or bodily function? How? (Chest pain, [place], [place], pneumonia, PE, COPD, DKA, ARF, appy, cholecystitis, CVA, Diverticulitis, Homicidal, Suicidal, threat to staff... and all critical care pts) @ -Low likelihood - Lab Data Result diagrams: 09/28/23 17:11 09/28/23 17:11 Lab Results 09/28/23 09/28/23 09/28/23 Range/Units 17:11 17:11 17:33 WBC 5.2 (3.8-10.6) k/uL RBC 4.63 (3.80-5.40) m/uL Hgb 11.7 (11.4-16.0) gm/dL Hct 38.1 (34.0-46.0) % MCV 82.2 (80.0-100.0) fL MCH 25.3 (25.0-35.0) pg MCHC 30.8 L (31.0-37.0) g/dL RDW 16.3 H (11.5-15.5) % Plt Count 248 (150-450) k/uL MPV 7.6 Neutrophils % 56 % Lymphocytes % 30 % Monocytes % 8 % Eosinophils % 2 % Basophils % 1 % Neutrophils # 2.9 (1.3-7.7) k/uL Lymphocytes # 1.6 (1.0-4.8) k/uL Monocytes # 0.4 (0-1.0) k/uL Eosinophils # 0.1 (0-0.7) k/uL Basophils # 0.0 (0-0.2) k/uL Hypochromasia Marked Anisocytosis Slight Sodium 140 (137-145) mmol/L Potassium 3.3 L (3.5-5.1) mmol/L Chloride 104 (98-107) mmol/L Carbon Dioxide 26 (22-30) mmol/L Anion Gap 10 mmol/L BUN 7 (7-17) mg/dL Creatinine 0.54 (0.52-1.04) mg/dL Est GFR (CKD-EPI)AfAm >90 (>60 ml/min/1.73 sqM) Est GFR (CKD-EPI)NonAf >90 (>60 ml/min/1.73 sqM) Glucose 65 L (74-99) mg/dL Calcium 9.5 (8.4-10.2) mg/dL Total Bilirubin 0.7 (0.2-1.3) mg/dL AST 23 (14-36) U/L ALT 12 (4-34) U/L Alkaline Phosphatase 41 (38-126) U/L Total Protein 7.9 (6.3-8.2) g/dL Albumin 4.8 (3.5-5.0) g/dL HCG, Quant 5670.9 mIU/mL Urine Color Yellow Urine Appearance Clear (Clear) Urine pH 7.5 (5.0-8.0) Ur Specific [place] 1.023 (1.001-1.035) Urine Protein 1+ H (Negative) Urine Glucose (UA) Negative (Negative) Urine Ketones Negative (Negative) Urine Blood Trace H (Negative) Urine Nitrite Negative (Negative) Urine Bilirubin Negative (Negative) Urine Urobilinogen 2.0 (<2.0) mg/dL Ur Leukocyte Esterase Small H (Negative) Urine RBC 2 (0-5) /hpf Urine WBC 1 (0-5) /hpf Ur Squamous Epith Cells 1 (0-4) /hpf Urine Mucus Few H (None) /hpf - Radiology Data Radiology results: report reviewed, image reviewed Disposition Clinical Impression: Threatened , Subchorionic bleed Disposition: HOME SELF-CARE Condition: Stable Instructions (If sedation given, give patient instructions): Threatened Miscarriage (ED), Subchorionic Hemorrhage (ED) Additional Instructions: Please follow-up with [facility] COACH in the next week. Return to the ER for any new or worsening concerns. Is patient prescribed a controlled substance at d/c from ED?: No Referrals: None,Stated [REFERRING] - 1-2 days Han Adair MD [STAFF PHYSICIAN] - 1-2 days Time of Disposition: 19:19
[2023-09-28 17:25] LABS: Anisocytosis Slight; Basophils % (A) 1 %; Eosinophils # (A) 0.1 k/uL (0-0.7); Eosinophils % (A) 2 %; HCT 38.1 % (34.0-46.0); HGB 11.7 gm/dL (11.4-16.0); Hypochromasia Marked; Lymphocytes # (A) 1.6 k/uL (1.0-4.8); Lymphocytes % (A) 30 %; MCH 25.3 pg (25.0-35.0); MCHC 30.8 g/dL (31.0-37.0); MCV 82.2 fL (80.0-100.0); Mean Platelet Volume 7.6; Monocytes # (A) 0.4 k/uL (0-1.0); Monocytes % (A) 8 %; Neutrophils # (A) 2.9 k/uL (1.3-7.7); Neutrophils % (A) 56 %; Platelet Count 248 k/uL (150-450); RBC 4.63 m/uL (3.80-5.40); RDW 16.3 % (11.5-15.5); WBC 5.2 k/uL (3.8-10.6)
[2023-09-28 17:33] LABS: ALT 12 U/L (4-34); AST 23 U/L (14-36); African American GFR (CKD) >90 (>60 ml/min/1.73 sqM); Albumin 4.8 g/dL (3.5-5.0); Alkaline Phosphatase 41 U/L (38-126); Anion Gap 10 mmol/L; Blood Urea Nitrogen 7 mg/dL (7-17); Calcium 9.5 mg/dL (8.4-10.2); Carbon Dioxide 26 mmol/L (22-30); Chloride 104 mmol/L (98-107); Glucose 65 mg/dL (74-99); Non-African American GFR(CKD) >90 (>60 ml/min/1.73 sqM); Potassium 3.3 mmol/L (3.5-5.1); Sodium 140 mmol/L (137-145); Total Bilirubin 0.7 mg/dL (0.2-1.3); Total Protein 7.9 g/dL (6.3-8.2)
[2023-09-28 17:49] LABS: HCG,Quantitative Serum 5670.9 mIU/mL
[2023-09-28 18:54] LABS: Appearance,Urine Clear (Clear); Bilirubin,Urine Negative (Negative); Blood,Urine Trace (Negative); Color,Urine Yellow; Glucose,Urine (UA) Negative (Negative); Ketones,Urine Negative (Negative); Leukocyte Esterase,Urine Small (Negative); Mucus,Urine Few /hpf; Nitrite,Urine Negative (Negative); PH, Urine 7.5 (5.0-8.0); Protein,Urine 1+ (Negative); RBC,Urine 2 /hpf (0-5); Specific Gravity,Urine 1.023 (1.001-1.035); Squamous Epithelial Cell,Urine 1 /hpf (0-4); WBC,Urine 1 /hpf (0-5)
--- NOTE | 2023-09-28 19:03 | US ---
EXAMINATION TYPE: Transabdominal DATE OF EXAM: 09/28/2023 6:03 PM COMPARISON: NONE CLINICAL INDICATION: Female, 23 years old with history of vag bleeding; red bleeding earlier today, s topped at time of exam, no pain now, A2 EXAM PERFORMED: OBTA EXAM MEASUREMENTS: GESTATIONAL AGE / DATING Physician Established: Not yet established Dates by LMP: (5 weeks/3 days) EDC: 05/27/2024 Dates by First Scan: No previous this is first scan Dates by Current Scan for: (5 weeks/4 days) EDC: 05/26/2024 MATERNAL ANATOMY Uterus: 8.5 x 6.1 x 4.9cm Right Ovary: 2.2 x 1.9 x 2.1cm Left Ovary: 3.6 x 2.3 x 2.3cm Post CDS / Adnexa: wnl Presence of free fluid: no Presence of corpus luteal cyst: yes - left ovary=2.0 x 2.1 x 1.9cm Presence of subchorionic bleed: yes - 1.8 x 1.1 x 1.0cm GESTATION / SURVEY CRL: not seen yet - too early MSD: 1.1 x 0.7 x 0.9 (5 weeks/4 days) Yolk Sac (normal less than 6mm): not seen yet IUP: gestational sac only seen at this time Date of LMP: 08/21/2023 Beta HcG (if available): pending IMPRESSION: 1. Normal early intrauterine versus normal early IUP, blighted ovum or missed spontaneous a bortion. Ectopic not excluded
[2023-09-28 19:48] VITALS: BP 103/65; PULSE 81; RESP 18; TEMP 97.9
== END 2023-09-28 19:48 | disposition home or self-care (01) ==
LOC: EC 16:38
DX: O20.0 Threatened abortion (principal); Z91.048 Other nonmedicinal substance allergy status; Z3A.01 Less than 8 weeks gestation of pregnancy; Z67.40 Type O blood, Rh positive
CPT/HCPCS: 36415; 76801; 80053; 81001; 84702; 85025; 86900; 86901; 99284

== ENCOUNTER 2023-10-09 14:05 | Emergency (ER) | payer OTHER ==
--- NOTE | 2023-10-09 14:28 | ED ---
Female Urogenital HPI - General Chief complaint: Vaginal Bleeding Stated complaint: 7wks preg/vag bleeding Time Seen by Provider: 10/09/23 14:20 Source: patient, RN notes reviewed Mode of arrival: ambulatory Limitations: no limitations - History of Present Illness Initial comments: This is a 23-year-old female at estimated 7 weeks gestation who presents the emergency department complaint of vaginal bleeding and abdominal cramping. Patient states that yesterday she had a brief episode of vaginal bleeding when she had to use the bathroom, at the bathroom at work this afternoon she had more vaginal bleeding. She denies passage of clots. Additionally, she states that she has had lower abdominal cramping. Patient had an ultrasound completed roughly a week ago which confirmed an intrauterine and was informed that she had a subchorionic hemorrhage. First appointment with her OB is in the beginning of October. - Related Data Home Medications Medication Instructions Recorded Confirmed Vit No.179/Iron/Folic 1 each PO DAILY 08/03/22 11/17/22 [ Tablet] Allergies Allergy/AdvReac Type Severity Reaction Status Date / Time nickel Allergy Rash/Hives Verified 09/28/23 16:43 Review of Systems ROS Statement: Those systems with pertinent positive or pertinent negative responses have been documented in the HPI. ROS Other: All systems not noted in ROS Statement are negative. Past Medical History Past Medical History: No Reported History Additional Past Medical History / Comment(s): Abd pain for the past 3 months with gallstones. History of Any Multi-Drug Resistant Organisms: None Reported Past Surgical History: Cholecystectomy Past Anesthesia/Blood Transfusion Reactions: No Reported Reaction Additional Past Anesthesia/Blood Transfusion Reaction / Comment(s): Has never had anesthesia. Past Psychological History: Anxiety, Depression Smoking Status: Never smoker Past Alcohol Use History: Occasional Past Drug Use History: None Reported - Past Family History Mother Family Medical History: CVA/TIA General Exam Limitations: no limitations General appearance: alert, in no apparent distress Head exam: Present: atraumatic, normocephalic, normal inspection Eye exam: Present: normal appearance, PERRL, EOMI. Absent: scleral icterus, conjunctival injection, periorbital swelling ENT exam: Present: normal exam, mucous membranes moist Neck exam: Present: normal inspection. Absent: tenderness, meningismus, lymphadenopathy Respiratory exam: Present: normal lung sounds bilaterally. Absent: respiratory distress, wheezes, rales, rhonchi, stridor Cardiovascular Exam: Present: regular rate, normal rhythm, normal heart sounds. Absent: systolic murmur, diastolic murmur, rubs, gallop, clicks GI/Abdominal exam: Present: soft, tenderness (suprapubic/pelvic), normal bowel sounds. Absent: distended, guarding, rebound, rigid External exam: Present: normal external exam Speculum exam: Present: normal speculum exam, vaginal bleeding By manual exam: Present: normal by manual exam. Absent: cervical motion tenderness Extremities exam: Present: normal inspection, full ROM, normal capillary refill. Absent: tenderness, pedal edema, joint swelling, calf tenderness Back exam: Present: normal inspection Neurological exam: Present: alert, oriented X3, CN II-XII intact Psychiatric exam: Present: normal affect, normal mood Skin exam: Present: warm, dry, intact, normal color. Absent: rash Course Vital Signs 10/09/23 10/09/23 14:17 17:02 Temperature 98.0 F 97.8 F Pulse Rate 75 76 Respiratory 18 16 Rate Blood Pressure 108/68 99/76 O2 Sat by Pulse 100 100 Oximetry Medical Decision Making - Medical Decision Making Was pt. sent in by a medical professional or institution (, PA, OVERHAULER BUS TRUCK, urgent care, hospital, or longterm...) When possible be specific @ -No Did you speak to anyone other than the patient for history (EMS, parent, family, police, friend...)? What history was obtained from this source @ -No Did you review nursing and triage notes (agree or disagree)? Why? @ -I reviewed and agree with nursing and triage notes Were old charts reviewed (outside hosp., previous admission, EMS record, old EKG, old radiological studies, urgent care reports/EKG's, longterm records)? Report findings @ -The patient's previous ultrasound that was completed in the emergency department in September that revealed a subchorionic hemorrhage. Differential Diagnosis (chest pain, altered mental status, abdominal pain women, abdominal pain men, vaginal bleeding, weakness, fever, dyspnea, syncope, h eadache, dizziness, GI bleed, back pain, seizure, CVA, palpatations, mental health, musculoskeletal)? @ -Differential Vaginal Bleeding: Spontaneous , threatened , molar , ectopic , bloody show, incompetent cervix, abruptioplacenta, placenta previa, uterine rupture, dysfunctional uterine bleeding, hemorrhage, uterine fibroids, this is not meant to be an all-inclusive list. EKG interpreted by me (3pts min.). @ -None X-rays interpreted by me (1pt min.). @ -None done CT interpreted by me (1pt min.). @ -None done U/S interpreted by me (1pt. min.). @ -Transabdominal ultrasound reveals a single live intrauterine with calculated age of weeks and 5 days with a heart rate of 140, mild to moderate subchorionic hemorrhage which is noted in previous ultrasound What testing was considered but not performed or refused? (CT, X-rays, U/S, labs)? Why? @ -None What meds were considered but not given or refused? Why? @ -None Did you discuss the management of the patient with other professionals (professionals i.e. , PA, OVERHAULER BUS TRUCK, lab, RT, psych nurse, public health social worker, superintendent nonselling, teacher, surface to air weapons officer, transplant case manager)? Give summary @ -No Was smoking cessation discussed for >3mins.? @ -No Was critical care preformed (if so, how long)? @ -No Were there social determinants of health that impacted care today? How? (Homelessness, low income, unemployed, alcoholism, drug addiction, transportation, low edu. Level, literacy, decrease access to med. care, halfway, rehab)? @ -No Was there de-escalation of care discussed even if they declined (Discuss DNR or withdrawal of care, Hospice)? DNR status @ -No What co-morbidities impacted this encounter? (DM, HTN, Smoking, COPD, CAD, Cancer, CVA, ARF, Chemo, Hep., AIDS, mental health diagnosis, sleep apnea, morbid obesity)? @ -None Was patient admitted / discharged? Hospital course, mention meds given and route, prescriptions, significant lab abnormalities, going to OR and other pertinent info. @ -Discharge. 23-year-old female at 7 weeks gestation and vaginal bleeding. On examination patient is found to have mild suprapubic tenderness. Additionally pelvic examination shows vaginal bleeding with no signs of adnexal tenderness or cervical motion tenderness. CBC and CMP unremarkable. hCG quantitative level 59565, UA no signs of infection. Ultrasound reveals a single intrauterine with a heart rate of 140 and subchorionic hemorrhage. Blood type is positive. Recommend the patient follows up as scheduled with her OB in the beginning of October for further evaluation. All questions answered at bedside and strict return parameters discussed with the patient she is verbalized understanding. case discussed with Dr. Yang. Undiagnosed new problem with uncertain prognosis? @ -No Drug Therapy requiring intensive monitoring for toxicity (Heparin, Nitro, Insulin, Cardizem)? @ -No Were any procedures done? @ -No Diagnosis/symptom? @ -vaginal bleeding during Acute, or Chronic, or Acute on Chronic? @ -Acute Uncomplicated (without systemic symptoms) or Complicated (systemic symptoms)? @ -uncomplicated Side effects of treatment? @ -No Exacerbation, Progression, or Severe Exacerbation? @ -No Poses a threat to life or bodily function? How? (Chest pain, [place], [place], pneumonia, PE, COPD, DKA, ARF, appy, cholecystitis, CVA, Diverticulitis, Homicidal, Suicidal, threat to staff... and all critical care pts) @ -No - Lab Data Result diagrams: 10/09/23 14:38 10/09/23 14:38 Lab Results 10/09/23 10/09/23 10/09/23 Range/Units 14:38 14:38 15:33 WBC 4.5 (3.8-10.6) k/uL RBC 4.58 (3.80-5.40) m/uL Hgb 11.5 (11.4-16.0) gm/dL Hct 37.0 (34.0-46.0) % MCV 80.8 (80.0-100.0) fL MCH 25.1 (25.0-35.0) pg MCHC 31.1 (31.0-37.0) g/dL RDW 16.2 H (11.5-15.5) % Plt Count 267 (150-450) k/uL MPV 8.1 Neutrophils % 52 % Lymphocytes % 34 % Monocytes % 8 % Eosinophils % 3 % Basophils % 1 % Neutrophils # 2.4 (1.3-7.7) k/uL Lymphocytes # 1.5 (1.0-4.8) k/uL Monocytes # 0.3 (0-1.0) k/uL Eosinophils # 0.2 (0-0.7) k/uL Basophils # 0.0 (0-0.2) k/uL Hypochromasia Marked Anisocytosis Slight Sodium 138 (137-145) mmol/L Potassium 3.8 (3.5-5.1) mmol/L Chloride 104 (98-107) mmol/L Carbon Dioxide 24 (22-30) mmol/L Anion Gap 10 mmol/L BUN 5 L (7-17) mg/dL Creatinine 0.48 L (0.52-1.04) mg/dL Est GFR (CKD-EPI)AfAm >90 (>60 ml/min/1.73 sqM) Est GFR (CKD-EPI)NonAf >90 (>60 ml/min/1.73 sqM) Glucose 78 (74-99) mg/dL Calcium 9.3 (8.4-10.2) mg/dL Total Bilirubin 0.7 (0.2-1.3) mg/dL AST 23 (14-36) U/L ALT 12 (4-34) U/L Alkaline Phosphatase 35 L (38-126) U/L Total Protein 7.5 (6.3-8.2) g/dL Albumin 4.6 (3.5-5.0) g/dL HCG, Quant 17834.5 mIU/mL Urine Color Colorless Urine Appearance Clear (Clear) Urine pH 7.5 (5.0-8.0) Ur Specific [place] 1.010 (1.001-1.035) Urine Protein Negative (Negative) Urine Glucose (UA) Negative (Negative) Urine Ketones Negative (Negative) Urine Blood Negative (Negative) Urine Nitrite Negative (Negative) Urine Bilirubin Negative (Negative) Urine Urobilinogen <2.0 (<2.0) mg/dL Ur Leukocyte Esterase Large H (Negative) Urine RBC 1 (0-5) /hpf Urine WBC 6 H (0-5) /hpf Ur Squamous Epith Cells 2 (0-4) /hpf Amorphous Sediment Rare H (None) /hpf Urine Bacteria Occasional H (None) /hpf Urine Mucus Rare H (None) /hpf Disposition Clinical Impression: Subchorionic hemorrhage, Vaginal bleeding during Disposition: HOME SELF-CARE Condition: Good Instructions (If sedation given, give patient instructions): Subchorionic Hemorrhage (ED) Additional Instructions: Return to the emergency department if your symptoms worsen or not improve. Recommend that you follow-up as scheduled with your OB for further evaluation. Is patient prescribed a controlled substance at d/c from ED?: No Referrals: None,Stated [REFERRING] - 1-2 days Time of Disposition: 16:41
[2023-10-09 14:44] LABS: Anisocytosis Slight; Basophils % (A) 1 %; Eosinophils # (A) 0.2 k/uL (0-0.7); Eosinophils % (A) 3 %; HGB 11.5 gm/dL (11.4-16.0); Hypochromasia Marked; Lymphocytes # (A) 1.5 k/uL (1.0-4.8); Lymphocytes % (A) 34 %; MCH 25.1 pg (25.0-35.0); MCHC 31.1 g/dL (31.0-37.0); MCV 80.8 fL (80.0-100.0); Mean Platelet Volume 8.1; Monocytes # (A) 0.3 k/uL (0-1.0); Monocytes % (A) 8 %; Neutrophils # (A) 2.4 k/uL (1.3-7.7); Neutrophils % (A) 52 %; Platelet Count 267 k/uL (150-450); RBC 4.58 m/uL (3.80-5.40); RDW 16.2 % (11.5-15.5); WBC 4.5 k/uL (3.8-10.6)
[2023-10-09 14:59] LABS: ALT 12 U/L (4-34); AST 23 U/L (14-36); African American GFR (CKD) >90 (>60 ml/min/1.73 sqM); Albumin 4.6 g/dL (3.5-5.0); Alkaline Phosphatase 35 U/L (38-126); Anion Gap 10 mmol/L; Blood Urea Nitrogen 5 mg/dL (7-17); Calcium 9.3 mg/dL (8.4-10.2); Carbon Dioxide 24 mmol/L (22-30); Chloride 104 mmol/L (98-107); Glucose 78 mg/dL (74-99); Non-African American GFR(CKD) >90 (>60 ml/min/1.73 sqM); Potassium 3.8 mmol/L (3.5-5.1); Sodium 138 mmol/L (137-145); Total Bilirubin 0.7 mg/dL (0.2-1.3); Total Protein 7.5 g/dL (6.3-8.2)
--- NOTE | 2023-10-09 15:31 | US ---
EXAMINATION TYPE: Transabdominal DATE OF EXAM: 10/09/2023 3:06 PM COMPARISON: NONE CLINICAL INDICATION: Female, 23 years old with history of cramping, bleeding, 7 weeks; bleeding EXAM PERFORMED: Transabdominal (TA) EXAM MEASUREMENTS: GESTATIONAL AGE / DATING Physician Established: Not yet established Dates by LMP: (6 weeks/3 days) EDC: 05/27/24 Dates by First Scan: (6 weeks/2 days) EDC: 05/26/24 Dates by Current Scan for: (6 weeks/5 days) EDC: 05/29/24 MATERNAL ANATOMY Uterus: 9.2x6.0x6.8cm Right Ovary: 4.4x2.1x3.4cm Left Ovary: 2.7x2.2x2.1cm Post CDS / Adnexa: wnl Presence of free fluid: no Presence of corpus luteal cyst: again seen: left ovary 1.4x1.5x1.6cm Presence of subchorionic bleed: again seen: 2.2x2.2x1.1cm GESTATION / SURVEY CRL: 7.1 (6 weeks/5 days) Yolk Sac (normal less than 6mm): 4mm Heart Rate: 140 bpm Rhythm: Normal IUP: Viable IUP Date of LMP: Beta HcG (if available): Not available at this time IMPRESSION: 1. Single live intrauterine with calculated ultrasound age of 6 weeks 5 days. 2. Mild to moderate Subchorionic hemorrhage.
[2023-10-09 16:02] LABS: Amorphous Sediment,Urine Rare /hpf; Appearance,Urine Clear (Clear); Bacteria,Urine Occasional /hpf; Bilirubin,Urine Negative (Negative); Blood,Urine Negative (Negative); Color,Urine Colorless; Glucose,Urine (UA) Negative (Negative); Ketones,Urine Negative (Negative); Leukocyte Esterase,Urine Large (Negative); Mucus,Urine Rare /hpf; Nitrite,Urine Negative (Negative); PH, Urine 7.5 (5.0-8.0); Protein,Urine Negative (Negative); RBC,Urine 1 /hpf (0-5); Squamous Epithelial Cell,Urine 2 /hpf (0-4); Urobilinogen,Urine <2.0 mg/dL (<2.0); WBC,Urine 6 /hpf (0-5)
[2023-10-09 16:22] LABS: HCG,Quantitative Serum 33390.5 mIU/mL
[2023-10-09 17:02] VITALS: BP 99/76; PULSE 76; RESP 16; TEMP 97.8
== END 2023-10-09 17:15 | disposition home or self-care (01) ==
LOC: EC 14:05
DX: O20.8 Other hemorrhage in early pregnancy (principal); O26.891 Other specified pregnancy related conditions, first trimester; R10.2 Pelvic and perineal pain; Z3A.01 Less than 8 weeks gestation of pregnancy; Z88.8 Allergy status to other drugs, medicaments and biological substances
CPT/HCPCS: 36415; 76801; 80053; 81001; 84702; 85025; 99284

== ENCOUNTER 2023-11-25 08:19 | Emergency (ER) | payer OTHER ==
--- NOTE | 2023-11-25 08:47 | ED ---
Female Urogenital HPI - General Chief complaint: Vaginal Bleeding Stated complaint: 14wks preg/Bleeding Time Seen by Provider: 11/25/23 08:31 Source: patient, RN notes reviewed Mode of arrival: ambulatory Limitations: no limitations - History of Present Illness Initial comments: This is a 23 year old female who presents to the emergency department for va ginal bleeding in . Patient is and approximately 14 weeks . States that when she woke up this morning she noticed a large amount of blood in her underwear. She has some cramping. She does have history of subchorionic hemorrhage earlier on in this , but states that the bleeding had since stopped. She follows with Dr. Adair, RECREATIONAL DIRECTOR. States that during her last visit everything was doing well and they heard the heartbeat. Denies any nausea or vomiting. States that she has been under a lot of stress lately. MD Complaint: vaginal bleeding - Related Data Home Medications Medication Instructions Recorded Confirmed Vit No.179/Iron/Folic 1 each PO DAILY 08/03/22 11/17/22 [ Tablet] Previous Rx's Medication Instructions Recorded Cephalexin [Keflex] 500 mg PO Q8HR 5 Days #15 cap 11/25/23 Miconazole 2% Vaginal Cream 1 applicator VAGINAL HS 7 Days #45 11/25/23 [Monistat 7] gm Allergies Allergy/AdvReac Type Severity Reaction Status Date / Time nickel Allergy Rash/Hives Verified 11/25/23 08:29 Review of Systems ROS Statement: Those systems with pertinent positive or pertinent negative responses have been documented in the HPI. ROS Other: All systems not noted in ROS Statement are negative. Past Medical History Past Medical History: No Reported History Additional Past Medical History / Comment(s): Abd pain for the past 3 months with gallstones. anemia History of Any Multi-Drug Resistant Organisms: None Reported Past Surgical History: Cholecystectomy Past Anesthesia/Blood Transfusion Reactions: No Reported Reaction Additional Past Anesthesia/Blood Transfusion Reaction / Comment(s): Has never had anesthesia. Past Psychological History: Anxiety, Depression Smoking Status: Never smoker Past Alcohol Use History: Occasional Past Drug Use History: None Reported - Past Family History Mother Family Medical History: CVA/TIA General Exam Limitations: no limitations General appearance: alert, in no apparent distress Head exam: Present: atraumatic, normocephalic, normal inspection Respiratory exam: Present: normal lung sounds bilaterally. Absent: respiratory distress, wheezes, rales, rhonchi, stridor Cardiovascular Exam: Present: regular rate, normal rhythm, normal heart sounds. Absent: systolic murmur, diastolic murmur, rubs, gallop, clicks Neurological exam: Present: alert, oriented X3, CN II-XII intact Psychiatric exam: Present: normal affect, normal mood Skin exam: Present: warm, dry, intact, normal color. Absent: rash Course Vital Signs 11/25/23 11/25/23 08:27 12:32 Temperature 98.1 F 98 F Pulse Rate 93 65 Respiratory 16 18 Rate Blood Pressure 97/72 97/61 O2 Sat by Pulse 97 99 Oximetry Medical Decision Making - Medical Decision Making This is a 23 year old female who presents to the emergency department for vaginal bleeding in . Was pt. sent in by a medical professional or institution? @ -No Did you speak to anyone other than the patient for history? @ -No Did you review nursing and triage notes? @ -Yes, and I agree, it is accurate with regards to the patient's symptoms. Were old charts reviewed? @ -No Differential Diagnosis? @ -Differential Vaginal Bleeding: Spontaneous , threatened , molar , ectopic , incompetent cervix, placenta previa, uterine rupture, dysfunctional uterine bleeding, hemorrhage, uterine fibroids, malignancy, coagulopathy, PID, cervicitis, adenomyosis, vaginal trauma, this is not meant to be an all- inclusive list. EKG interpreted by me (3pts min.)? @ -Not obtained X-rays interpreted by me (1pt min.)? @ -Not obtained CT interpreted by me (1pt min.)? @ -Not obtained U/S interpreted by me (1pt. min.)? @ -Obstetrics ultrasound obtained. My interpretation identifies a single live intrauterine . What testing was considered but not performed? (CT, X-rays, U/S, labs)? Why? @ -None What meds were considered but not given? Why? @ -None Did you discuss the management of the patient with other professionals? @ -No Did you reconcile home meds? @ -No Was smoking cessation discussed for >3mins.? @ -No Was critical care preformed (if so, how long)? @ -No Were there social determinants of health that impacted care today? How? (Homelessness, low income, unemployed, alcoholism, drug addiction, transportation, low edu. Level, literacy, decrease access to med. care, long term, rehab)? @ -No Was there de-escalation of care discussed even if they declined? (Discuss DNR or withdrawal of care, Hospice)? @ -No What co-morbidities impacted this encounter? (DM, HTN, Smoking, COPD, CAD, Cancer, CVA, Hep., AIDS, mental health diagnosis, sleep apnea, morbid obesity)? @ - Was patient admitted / discharged? @ -Discharged. Lab work unremarkable. Urinalysis demonstrates asymptomatic bacteriuria. Patient is Rh+ and no RhoGAM is indicated. Obstetrics ultrasound obtained demonstrating a single live intrauterine with a subchorionic hemorrhage. Findings reviewed with the patient. Keflex prescribed for asymptomatic bacteriuria. Miconazole cream prescribed as well due to patient's concern for a yeast infection. Advised follow-up with her RECREATIONAL DIRECTOR. Patient discharged home stable condition. Case discussed with ED attending Dr. Yang. Return precautions reviewed in depth, the patient is instructed to return to the emergency department with any new, worsening, or concerning symptoms. Patient verbalized understanding. Undiagnosed new problem with uncertain prognosis? @ -None Drug Therapy requiring intensive monitoring for toxicity (Heparin, Nitro, Insulin, Cardizem)? @ -None Were any procedures done? @ -None Diagnosis/symptom? @ -Vaginal bleeding in , subchorionic hemorrhage Acute, or Chronic, or Acute on Chronic? @ -Acute Uncomplicated (without systemic symptoms) or Complicated (systemic symptoms)? @ -Uncomplicated Side effects of treatment? @ -None Exacerbation, Progression, or Severe Exacerbation] @ -Not applicable Poses a threat to life or bodily function? @ -Unlikely - Lab Data Result diagrams: 11/25/23 09:08 11/25/23 09:08 Lab Results 11/25/23 11/25/23 11/25/23 Range/Units 09:08 09:08 09:08 WBC 3.9 (3.8-10.6) k/uL RBC 4.39 (3.80-5.40) m/uL Hgb 11.0 L (11.4-16.0) gm/dL Hct 34.1 (34.0-46.0) % MCV 77.7 L (80.0-100.0) fL MCH 25.1 (25.0-35.0) pg MCHC 32.3 (31.0-37.0) g/dL RDW 15.8 H (11.5-15.5) % Plt Count 253 (150-450) k/uL MPV 8.3 Neutrophils % 61 % Lymphocytes % 26 % Monocytes % 8 % Eosinophils % 2 % Basophils % 1 % Neutrophils # 2.4 (1.3-7.7) k/uL Lymphocytes # 1.0 (1.0-4.8) k/uL Monocytes # 0.3 (0-1.0) k/uL Eosinophils # 0.1 (0-0.7) k/uL Basophils # 0.0 (0-0.2) k/uL Hypochromasia Moderate Microcytosis Slight Sodium 137 (137-145) mmol/L Potassium 3.8 (3.5-5.1) mmol/L Chloride 105 (98-107) mmol/L Carbon Dioxide 25 (22-30) mmol/L Anion Gap 7 mmol/L BUN 3 L (7-17) mg/dL Creatinine 0.41 L (0.52-1.04) mg/dL Est GFR (CKD-EPI)AfAm >90 (>60 ml/min/1.73 sqM) Est GFR (CKD-EPI)NonAf >90 (>60 ml/min/1.73 sqM) Glucose 78 (74-99) mg/dL Calcium 9.2 (8.4-10.2) mg/dL Total Bilirubin 0.6 (0.2-1.3) mg/dL AST 25 (14-36) U/L ALT 16 (4-34) U/L Alkaline Phosphatase 38 (38-126) U/L Total Protein 6.9 (6.3-8.2) g/dL Albumin 3.9 (3.5-5.0) g/dL HCG, Quant >489435.0 mIU/mL Urine Color Urine Appearance (Clear) Urine pH (5.0-8.0) Ur Specific Shelby (1.001-1.035) Urine Protein (Negative) Urine Glucose (UA) (Negative) Urine Ketones (Negative) Urine Blood (Negative) Urine Nitrite (Negative) Urine Bilirubin (Negative) Urine Urobilinogen (<2.0) mg/dL Ur Leukocyte Esterase (Negative) Urine RBC (0-5) /hpf Urine WBC (0-5) /hpf Ur Squamous Epith Cells (0-4) /hpf Urine Bacteria (None) /hpf Urine Mucus (None) /hpf Urine Yeast (Budding) (None) /hpf Blood Type O Positive Blood Type Recheck O Pos Bld Type Recheck Status No 11/25/23 Range/Units 10:10 WBC (3.8-10.6) k/uL RBC (3.80-5.40) m/uL Hgb (11.4-16.0) gm/dL Hct (34.0-46.0) % MCV (80.0-100.0) fL MCH (25.0-35.0) pg MCHC (31.0-37.0) g/dL RDW (11.5-15.5) % Plt Count (150-450) k/uL MPV Neutrophils % % Lymphocytes % % Monocytes % % Eosinophils % % Basophils % % Neutrophils # (1.3-7.7) k/uL Lymphocytes # (1.0-4.8) k/uL Monocytes # (0-1.0) k/uL Eosinophils # (0-0.7) k/uL Basophils # (0-0.2) k/uL Hypochromasia Microcytosis Sodium (137-145) mmol/L Potassium (3.5-5.1) mmol/L Chloride (98-107) mmol/L Carbon Dioxide (22-30) mmol/L Anion Gap mmol/L BUN (7-17) mg/dL Creatinine (0.52-1.04) mg/dL Est GFR (CKD-EPI)AfAm (>60 ml/min/1.73 sqM) Est GFR (CKD-EPI)NonAf (>60 ml/min/1.73 sqM) Glucose (74-99) mg/dL Calcium (8.4-10.2) mg/dL Total Bilirubin (0.2-1.3) mg/dL AST (14-36) U/L ALT (4-34) U/L Alkaline Phosphatase (38-126) U/L Total Protein (6.3-8.2) g/dL Albumin (3.5-5.0) g/dL HCG, Quant mIU/mL Urine Color Yellow Urine Appearance Cloudy H (Clear) Urine pH 8.0 (5.0-8.0) Ur Specific [place] 1.021 (1.001-1.035) Urine Protein 1+ H (Negative) Urine Glucose (UA) Negative (Negative) Urine Ketones Negative (Negative) Urine Blood Large H (Negative) Urine Nitrite Negative (Negative) Urine Bilirubin Negative (Negative) Urine Urobilinogen <2.0 (<2.0) mg/dL Ur Leukocyte Esterase Moderate H (Negative) Urine RBC 1 (0-5) /hpf Urine WBC 6 H (0-5) /hpf Ur Squamous Epith Cells 4 (0-4) /hpf Urine Bacteria Rare H (None) /hpf Urine Mucus Many H (None) /hpf Urine Yeast (Budding) Occasional H (None) /hpf Blood Type Blood Type Recheck Bld Type Recheck Status - Radiology Data Radiology results: report reviewed, image reviewed Disposition Clinical Impression: Vaginal bleeding during , Subchorionic hematoma, Bacteriuria Disposition: HOME SELF-CARE Instructions (If sedation given, give patient instructions): Subchorionic Hemorrhage (ED) Additional Instructions: Return to the emergency department with any new, worsening, or concerning s ymptoms. Take the antibiotics as prescribed for 5 days. Use the Monistat cream for 7 days if you develop a yeast infection. Follow up with your RECREATIONAL DIRECTOR. Prescriptions: Cephalexin [Keflex] 500 mg PO Q8HR 5 Days #15 cap Miconazole 2% Vaginal Cream [Monistat 7] 1 applicator VAGINAL HS 7 Days #45 gm Is patient prescribed a controlled substance at d/c from ED?: No Referrals: Brittni Minaya MD [Primary Care Provider] - 1-2 days Time of Disposition: 12:39
[2023-11-25 09:31] LABS: Basophils % (A) 1 %; Eosinophils # (A) 0.1 k/uL (0-0.7); Eosinophils % (A) 2 %; HCT 34.1 % (34.0-46.0); Hypochromasia Moderate; Lymphocytes % (A) 26 %; MCH 25.1 pg (25.0-35.0); MCHC 32.3 g/dL (31.0-37.0); MCV 77.7 fL (80.0-100.0); Mean Platelet Volume 8.3; Microcytosis Slight; Monocytes # (A) 0.3 k/uL (0-1.0); Monocytes % (A) 8 %; Neutrophils # (A) 2.4 k/uL (1.3-7.7); Neutrophils % (A) 61 %; Platelet Count 253 k/uL (150-450); RBC 4.39 m/uL (3.80-5.40); RDW 15.8 % (11.5-15.5); WBC 3.9 k/uL (3.8-10.6)
--- NOTE | 2023-11-25 09:33 | US ---
EXAMINATION TYPE: Transabdominal DATE OF EXAM: 11/25/2023 9:02 AM COMPARISON: NONE CLINICAL INDICATION: Female, 23 years old with history of Vaginal bleeding in ; Bleeding EXAM PERFORMED: Transabdominal (TA) EXAM MEASUREMENTS: GESTATIONAL AGE / DATING Physician Established: (13 weeks/5 days) EDC: 05/27/2024 Dates by LMP: (13 weeks/5 days) EDC: 05/27/2024 Dates by First Scan: (7 weeks/0 days) EDC: 05/27/2024 Dates by Current Scan for: (13 weeks/4 days) EDC: 05/28/2024 MATERNAL ANATOMY Uterus: 14.5 x 11 x 12.7 cm Right Ovary: 4.3 x 2.3 x 3.3 cm Left Ovary: Obscured by bowel gas. Post CDS / Adnexa: wnl Presence of free fluid: no Presence of corpus luteal cyst: no Presence of subchorionic bleed: yes measuring 3.3 x 1.5 x 2.9 cm. GESTATION / SURVEY CRL: 7.3 cm (13 weeks/4 days) Heart Rate: 170 bpm Rhythm: Normal IUP: Viable IUP Subchorionic bleed visualized IMPRESSION: 1. Single viable intrauterine . Subchorionic hemorrhage noted.
[2023-11-25 09:43] LABS: Potassium 3.8 mmol/L (3.5-5.1)
[2023-11-25 09:44] LABS: ALT 16 U/L (4-34); AST 25 U/L (14-36); African American GFR (CKD) >90 (>60 ml/min/1.73 sqM); Albumin 3.9 g/dL (3.5-5.0); Alkaline Phosphatase 38 U/L (38-126); Anion Gap 7 mmol/L; Blood Urea Nitrogen 3 mg/dL (7-17); Calcium 9.2 mg/dL (8.4-10.2); Carbon Dioxide 25 mmol/L (22-30); Chloride 105 mmol/L (98-107); Glucose 78 mg/dL (74-99); Non-African American GFR(CKD) >90 (>60 ml/min/1.73 sqM); Sodium 137 mmol/L (137-145); Total Bilirubin 0.6 mg/dL (0.2-1.3); Total Protein 6.9 g/dL (6.3-8.2)
[2023-11-25 11:14] LABS: HCG,Quantitative Serum >225000.0 mIU/mL
[2023-11-25 12:32] LABS: Appearance,Urine Cloudy (Clear); Bacteria,Urine Rare /hpf; Bilirubin,Urine Negative (Negative); Blood,Urine Large (Negative); Budding Yeast,Urine Occasional /hpf; Color,Urine Yellow; Glucose,Urine (UA) Negative (Negative); Ketones,Urine Negative (Negative); Leukocyte Esterase,Urine Moderate (Negative); Mucus,Urine Many /hpf; Nitrite,Urine Negative (Negative); Protein,Urine 1+ (Negative); RBC,Urine 1 /hpf (0-5); Specific Gravity,Urine 1.021 (1.001-1.035); Squamous Epithelial Cell,Urine 4 /hpf (0-4); Urobilinogen,Urine <2.0 mg/dL (<2.0); WBC,Urine 6 /hpf (0-5)
[2023-11-25 12:35] VITALS: BP 97/61; PULSE 65; RESP 18; TEMP 98
== END 2023-11-25 13:06 | disposition home or self-care (01) ==
LOC: EC 08:19
CPT/HCPCS: 36415; 76801; 80053; 81001; 84702; 85025; 86900; 86901; 99284

== ENCOUNTER 2023-11-27 20:43 | Emergency (ER) | payer OTHER ==
[2023-11-27 20:52] VITALS: RESP 18
[2023-11-27] MEDS: SODIUM CHLORIDE 0.9% 500 ML 500 ML IV STA (21:14)
[2023-11-27 21:20] LABS: Basophils % (A) 1 %; Eosinophils # (A) 0.1 k/uL (0-0.7); Eosinophils % (A) 2 %; HCT 32.8 % (34.0-46.0); HGB 10.2 gm/dL (11.4-16.0); Hypochromasia Marked; Lymphocytes # (A) 1.6 k/uL (1.0-4.8); Lymphocytes % (A) 28 %; MCH 24.3 pg (25.0-35.0); MCV 78.4 fL (80.0-100.0); Mean Platelet Volume 7.3; Monocytes # (A) 0.4 k/uL (0-1.0); Monocytes % (A) 7 %; Neutrophils # (A) 3.4 k/uL (1.3-7.7); Neutrophils % (A) 60 %; Platelet Count 255 k/uL (150-450); RBC 4.18 m/uL (3.80-5.40); RDW 15.8 % (11.5-15.5); WBC 5.7 k/uL (3.8-10.6)
[2023-11-27 21:32] LABS: ALT 13 U/L (4-34); AST 24 U/L (14-36); African American GFR (CKD) >90 (>60 ml/min/1.73 sqM); Albumin 3.7 g/dL (3.5-5.0); Alkaline Phosphatase 37 U/L (38-126); Anion Gap 8 mmol/L; Blood Urea Nitrogen 5 mg/dL (7-17); Calcium 9.3 mg/dL (8.4-10.2); Carbon Dioxide 21 mmol/L (22-30); Chloride 107 mmol/L (98-107); Glucose 77 mg/dL (74-99); Non-African American GFR(CKD) >90 (>60 ml/min/1.73 sqM); Potassium 3.6 mmol/L (3.5-5.1); Sodium 136 mmol/L (137-145); Total Bilirubin 0.4 mg/dL (0.2-1.3); Total Protein 6.6 g/dL (6.3-8.2)
--- NOTE | 2023-11-27 21:44 | ED ---
Female Urogenital HPI - General Chief complaint: Vaginal Bleeding Stated complaint: Vaginal Bleeding & 14w Time Seen by Provider: 11/27/23 21:06 Source: EMS Mode of arrival: EMS Limitations: no limitations - History of Present Illness Initial comments: This patient is a 23-year-old woman, G5, P2, AB 2, coming in to be seen for vaginal bleeding and pelvic cramping. The patient states she was concerned because she has had previous miscarriage that started this way. Patient denies symptoms of anemia, no lightheadedness or orthostatic symptoms. No chest pain, palpitations, dyspnea, diaphoresis. MD Complaint: vaginal bleeding, pelvic pain Onset/Timin -: days(s) Location: LLQ, RLQ Severity: moderate Quality: cramping Consistency: constant Patient : Yes Number of weeks : 14 Associated Symptoms: vaginal bleeding - Related Data Sexually active: Yes Home Medications Medication Instructions Recorded Confirmed Vit No.179/Iron/Folic 1 each PO DAILY 08/03/22 11/17/22 [ Tablet] Previous Rx's Medication Instructions Recorded Cephalexin [Keflex] 500 mg PO Q8HR 5 Days #15 cap 11/25/23 Miconazole 2% Vaginal Cream 1 applicator VAGINAL HS 7 Days #45 11/25/23 [Monistat 7] gm Allergies Allergy/AdvReac Type Severity Reaction Status Date / Time nickel Allergy Rash/Hives Verified 11/27/23 20:52 Review of Systems ROS Statement: Those systems with pertinent positive or pertinent negative responses have been documented in the HPI. ROS Other: All systems not noted in ROS Statement are negative. Past Medical History Past Medical History: No Reported History Additional Past Medical History / Comment(s): Abd pain for the past 3 months with gallstones. anemia History of Any Multi-Drug Resistant Organisms: None Reported Past Surgical History: Cholecystectomy Past Anesthesia/Blood Transfusion Reactions: No Reported Reaction Additional Past Anesthesia/Blood Transfusion Reaction / Comment(s): Has never had anesthesia. Past Psychological History: Anxiety, Depression Smoking Status: Never smoker Past Alcohol Use History: Occasional Past Drug Use History: None Reported - Past Family History Mother Family Medical History: CVA/TIA General Exam Limitations: no limitations General appearance: alert, in no apparent distress Head exam: Present: atraumatic, normocephalic Eye exam: Present: normal appearance. Absent: scleral icterus, conjunctival injection Neck exam: Present: normal inspection Respiratory exam: Present: normal lung sounds bilaterally. Absent: respiratory distress, wheezes, rales, rhonchi, stridor, accessory muscle use Cardiovascular Exam: Present: regular rate, normal rhythm, normal heart sounds. Absent: systolic murmur, diastolic murmur, rubs, gallop GI/Abdominal exam: Present: soft. Absent: distended, tenderness, guarding, rebound, rigid, mass External exam: Present: normal external exam. Absent: erythema, swelling, lesions, lacerations, ecchymosis Speculum exam: Present: vaginal bleeding. Absent: vaginal discharge, cervical discharge, foreign body, tissue, laceration By manual exam: Present: normal by manual exam, uterine enlargement. Absent: cervical motion tenderness, adnexal tenderness, adnexal mass, uterine tenderness Extremities exam: Present: normal inspection, normal capillary refill. Absent: pedal edema, calf tenderness Back exam: Present: normal inspection. Absent: CVA tenderness (R), CVA tenderness (L) Neurological exam: Present: alert Skin exam: Present: warm, dry, intact, normal color. Absent: rash Course Vital Signs 11/27/23 11/27/23 11/28/23 20:46 23:31 02:23 Temperature 98.1 F 98.9 F 98.8 F Pulse Rate 93 76 79 Respiratory 18 18 18 Rate Blood Pressure 121/74 116/60 111/64 O2 Sat by Pulse 99 99 98 Oximetry Medical Decision Making - Medical Decision Making The patient had ultrasound performed that does show what appears to be viable with normal heart rate. Was pt. sent in by a medical professional or institution (, PA, HEAVY TRUCK DRIVER, urgent care, hospital, or intermediate...) When possible be specific @ -[No] Did you speak to anyone other than the patient for history (EMS, parent, family, police, friend...)? What history was obtained from this source @ -[No] Did you review nursing and triage notes (agree or disagree)? Why? @ -[I reviewed and agree with nursing and triage notes] Were old charts reviewed (outside hosp., previous admission, EMS record, old EKG, old radiological studies, urgent care reports/EKG's, intermediate records)? Report findings @ -[No old charts were reviewed] Differential Diagnosis (chest pain, altered mental status, abdominal pain women, abdominal pain men, vaginal bleeding, weakness, fever, dyspnea, syncope, headache, dizziness, GI bleed, back pain, seizure, CVA, palpatations, mental health, musculoskeletal)? @ -[Differential Vaginal Bleeding: Spontaneous , threatened , molar , ectopic , bloody show, incompetent cervix, abruptioplacenta, placenta previa, uterine rupture, dysfunctional uterine bleeding, hemorrhage, uterine fibroids, this is not meant to be an all-inclusive list. EKG interpreted by me (3pts min.). @ -[As above] X-rays interpreted by me (1pt min.). @ -[None done] CT interpreted by me (1pt min.). @ -[None done] U/S interpreted by me (1pt. min.). @ -[I interpreted as above What testing was considered but not performed or refused? (CT, X-rays, U/S, labs)? Why? @ -[None] What meds were considered but not given or refused? Why? @ -[None] Did you discuss the management of the patient with other professionals (professionals i.e. , PA, HEAVY TRUCK DRIVER, lab, RT, psych nurse, social sciences professor, python engineer, teacher, sheriff's officer, case loader operator)? Give summary @ -[No] Was smoking cessation discussed for >3mins.? @ -[No] Was critical care preformed (if so, how long)? @ -[No] Were there social determinants of health that impacted care today? How? (Homelessness, low income, unemployed, alcoholism, drug addiction, transportation, low edu. Level, literacy, decrease access to med. care, intermediate, rehab)? @ -[No] Was there de-escalation of care discussed even if they declined (Discuss DNR or withdrawal of care, Hospice)? DNR status @ -[No] What co-morbidities impacted this encounter? (DM, HTN, Smoking, COPD, CAD, Cancer, CVA, ARF, Chemo, Hep., AIDS, mental health diagnosis, sleep apnea, morbid obesity)? @ -[None] Was patient admitted / discharged? Hospital course, mention meds given and route, prescriptions, significant lab abnormalities, going to OR and other pertinent info. @ -[Patient is a 23-year-old woman here for vaginal bleeding. The patient had ultrasound that did show subchorionic hemorrhage. The patient had improvement in the vaginal bleeding and wanted to go home. We discussed pelvic rest, the appropriate further care and follow-up. Undiagnosed new problem with uncertain prognosis? @ -[No] Drug Therapy requiring intensive monitoring for toxicity (Heparin, Nitro, Insulin, Cardizem)? @ -[No] Were any procedures done? @ -[No] Diagnosis/symptom? @ -Threatened miscarriage Acute, or Chronic, or Acute on Chronic? @ -[Acute Uncomplicated (without systemic symptoms) or Complicated (systemic symptoms)? @ -[Uncomplicated Side effects of treatment? @ -[No] Exacerbation, Progression, or Severe Exacerbation? @ -[No] Poses a threat to life or bodily function? How? (Chest pain, [place], [place], pneumonia, PE, COPD, DKA, ARF, appy, cholecystitis, CVA, Diverticulitis, Homicidal, Suicidal, threat to staff... and all critical care pts) @ -[There is risk of impending miscarriage - Lab Data Result diagrams: 11/27/23 21:11 11/27/23 21:11 Lab Results 11/27/23 11/27/23 Range/Units 21:11 21:11 WBC 5.7 (3.8-10.6) k/uL RBC 4.18 (3.80-5.40) m/uL Hgb 10.2 L (11.4-16.0) gm/dL Hct 32.8 L (34.0-46.0) % MCV 78.4 L (80.0-100.0) fL MCH 24.3 L (25.0-35.0) pg MCHC 31.0 (31.0-37.0) g/dL RDW 15.8 H (11.5-15.5) % Plt Count 255 (150-450) k/uL MPV 7.3 Neutrophils % 60 % Lymphocytes % 28 % Monocytes % 7 % Eosinophils % 2 % Basophils % 1 % Neutrophils # 3.4 (1.3-7.7) k/uL Lymphocytes # 1.6 (1.0-4.8) k/uL Monocytes # 0.4 (0-1.0) k/uL Eosinophils # 0.1 (0-0.7) k/uL Basophils # 0.0 (0-0.2) k/uL Hypochromasia Marked Sodium 136 L (137-145) mmol/L Potassium 3.6 (3.5-5.1) mmol/L Chloride 107 (98-107) mmol/L Carbon Dioxide 21 L (22-30) mmol/L Anion Gap 8 mmol/L BUN 5 L (7-17) mg/dL Creatinine 0.37 L (0.52-1.04) mg/dL Est GFR (CKD-EPI)AfAm >90 (>60 ml/min/1.73 sqM) Est GFR (CKD-EPI)NonAf >90 (>60 ml/min/1.73 sqM) Glucose 77 (74-99) mg/dL Calcium 9.3 (8.4-10.2) mg/dL Total Bilirubin 0.4 (0.2-1.3) mg/dL AST 24 (14-36) U/L ALT 13 (4-34) U/L Alkaline Phosphatase 37 L (38-126) U/L Total Protein 6.6 (6.3-8.2) g/dL Albumin 3.7 (3.5-5.0) g/dL HCG, Quant >367149.0 mIU/mL Disposition Clinical Impression: Threatened , Subchorionic hematoma Disposition: HOME SELF-CARE Condition: Good Instructions (If sedation given, give patient instructions): Threatened Miscarriage (ED) Is patient prescribed a controlled substance at d/c from ED?: No Referrals: Brittni Minaya MD [Primary Care Provider] - 1-2 days
[2023-11-27 23:21] LABS: HCG,Quantitative Serum >225000.0 mIU/mL
--- NOTE | 2023-11-28 00:16 | US ---
EXAM: US , Transabdominal CLINICAL HISTORY: bleeding at 14wks TECHNIQUE: Real-time Transabdominal obstetrical ultrasound of the maternal pelvis and second or third trimester with image documentation. 45 images COMPARISON: OB ultrasound from 2 days ago FINDINGS: Fetus: Single live intrauterine with an estimated gestational age of 14 weeks 4 days per biometric measurements. Estimated weight is 3 ounces, at 51 percentile Heart rate: heart rate is 163. Presentation: presentation is variable. Placenta: 0 placenta is located anteriorly near fundus. 3 x 1.4 x 1.5 cm subchronic hemorrhage left of the gestational sac is again noted. Amniotic fluid: GABY is 13 cm. Anatomy: This exam is not indicated for anatomical survey. MATERNAL: Uterus: Unremarkable. No myometrial mass. Cervix: Cervix is closed and measures about 3.7 cm in length. Free fluid: No free fluid. IMPRESSION: Single live intrauterine with an estimated gestational age of 14 weeks 4 days. Estimated due date is 05/23/24. 3 x 1.4 x 1.5 cm subchronic hemorrhage left of gestational sac is again noted, warrants close follow-up.
[2023-11-28 02:25] VITALS: BP 111/64; PULSE 79; TEMP 98.8
== END 2023-11-28 02:30 | disposition home or self-care (01) ==
LOC: EC 20:43
CPT/HCPCS: 36415; 76805; 80053; 84702; 85025; 96360; 96361; 99285

== ENCOUNTER 2024-02-05 00:30 | Inpatient (IN) | payer OTHER ==
[2024-02-05] MEDS ORDERED: METHYLERGONOVINE 0.2 MG/ML 1 ML AMP IM PRN (00:57)
[2024-02-05] MEDS ORDERED: TRANEXAMIC 1,000 MG/100ML-NACL 1,000 MG in EMPTY BAG 1 BAG IV PRN (00:57)
[2024-02-05] MEDS ORDERED: OXYTOCIN 10 UNIT/ML 1 ML VIAL IM PRN (00:57)
[2024-02-05] MEDS ORDERED: miSOPROStoL 200 MCG TAB RECTAL PRN (00:57)
[2024-02-05] MEDS ORDERED: LIDOCAINE 0.5% (PF) 5 MG/ML (50 ML SDV) SQ PRN (00:57)
[2024-02-05] MEDS ORDERED: miSOPROStoL 200 MCG TAB PO PRN (00:57)
[2024-02-05] MEDS ORDERED: CARBOPROST TROMETHAMINE 250 MCG/ML 1 ML AMP IM PRN (00:57)
[2024-02-05] MEDS ORDERED: TERBUTALINE 1 MG/ML VIAL SQ PRN (00:57)
[2024-02-05] MEDS: LACTATED RINGERS 1,000 ML IV SCH ×3 (01:00→13:03)
[2024-02-05] MEDS ORDERED: OXYTOCIN 30 UNITS/500 ML NS 30 UNIT in SALINE 1 500ML.BAG IV SCH ×2 (01:00→02:30)
[2024-02-05] MEDS: AMPICILLIN 2,000 MG in SODIUM CHLORIDE 0.9% 100 ML IVPB STA (01:12)
[2024-02-05 01:27] LABS: Anisocytosis Slight; Basophils % (A) 1 %; Eosinophils # (A) 0.2 k/uL (0-0.7); Eosinophils % (A) 2 %; HCT 32.3 % (34.0-46.0); HGB 10.2 gm/dL (11.4-16.0); Hypochromasia Marked; Lymphocytes # (A) 2.1 k/uL (1.0-4.8); Lymphocytes % (A) 27 %; MCH 23.3 pg (25.0-35.0); MCHC 31.4 g/dL (31.0-37.0); Mean Platelet Volume 8.3; Microcytosis Slight; Monocytes # (A) 0.4 k/uL (0-1.0); Monocytes % (A) 6 %; Neutrophils # (A) 4.7 k/uL (1.3-7.7); Neutrophils % (A) 61 %; Platelet Count 255 k/uL (150-450); RBC 4.37 m/uL (3.80-5.40); RDW 16.8 % (11.5-15.5); WBC 7.6 k/uL (3.8-10.6)
[2024-02-05] MEDS: CITRIC ACID-SODIUM CITRATE 15 ML CUP PO ONE ×2 (01:29→03:52)
--- NOTE | 2024-02-05 02:20 | P.HPOB ---
History of Present Illness H&P Date: 02/05/24 Chief Complaint: IUP at 24 weeks, PPROM, contractions 24-year-old 5 para 2-0-2-2 at 24 and 0/7 weeks that presents to labor and delivery with complaints of spontaneous rupture of membranes and contractions via EMS. Last menstrual period equal to a 6-week ultrasound, EDC of 05/27/2024, patient has been receiving routine care which was complicated by a velamentous cord insertion and polyhydramnios. Patient did see maternal- medicine with no recommendations other than serial growth ultrasounds. Patient states she noted some cramping around 1030 and awoke around midnight with significant pain, she is unsure when rupture of membranes occurred, positive AmniSure in triage. Patient has a known blood type of O+, rubella status immune, hepatitis B surface engine negative, RPR is nonreactive, HIV is negative. [employer] history 5 para 2-0-2-2 #1 38 weeks 2020 spontaneous vaginal delivery #2 spontaneous AB #3 AB #4 term 40 weeks, November 2022, spontaneous vaginal delivery #5 current Review of Systems Constitutional: Denies chills, Denies fatigue, Denies fever Ears, nose, mouth and throat: Denies headache Cardiovascular: Denies leg edema Respiratory: Denies dyspnea Gastrointestinal: Denies constipation, Denies diarrhea, Denies nausea, Denies vomiting Genitourinary: Reports Past Medical History Past Medical History: No Reported History Additional Past Medical History / Comment(s): Abd pain for the past 3 months with gallstones. anemia History of Any Multi-Drug Resistant Organisms: None Reported Past Surgical History: Cholecystectomy Past Anesthesia/Blood Transfusion Reactions: No Reported Reaction Additional Past Anesthesia/Blood Transfusion Reaction / Comment(s): Has never had anesthesia. Smoking Status: Never smoker - Past Family History Mother Family Medical History: CVA/TIA Medications and Allergies Home Medications Medication Instructions Recorded Confirmed Type Vit No.179/Iron/Folic 1 each PO DAILY 08/03/22 02/05/24 History [ Tablet] Cephalexin [Keflex] 500 mg PO Q8HR 5 Days #15 cap 11/25/23 Rx Miconazole 2% Vaginal Cream 1 applicator VAGINAL HS 7 Days #45 11/25/23 Rx [Monistat 7] gm Allergies Allergy/AdvReac Type Severity Reaction Status Date / Time nickel Allergy Rash/Hives Verified 11/27/23 20:52 Exam Osteopathic Statement: *. No significant issues noted on an osteopathic structural exam other than those noted in the History and Physical/Consult. Intake and Output 02/04/24 02/04/24 02/05/24 14:59 22:59 06:59 Other: Weight 67.132 kg Targeted physical exam is performed this date General Is well-nourished well- developed female in active labor, breathing is nonlabored, heart has a regular rate rhythm, abdomen is gravid appropriate for gestational age and firm, on cervical exam she is completely dilated with membranes appreciated in the vaginal vault, on ultrasound no parts are in the vaginal vault, fetus is noted to be transverse in presentation head in the right upper abdomen heart tones are noted to be appropriate for gestational age, she is dominick every 2 minutes. Results Result Diagrams: 02/05/24 01:18 Assessment and Plan (1) 24 weeks gestation of Current Visit: Yes Status: Acute Code(s): Z3A.24 - 24 WEEKS GESTATION OF SNOMED Code(s): 576687193 (2) premature rupture of membranes (PPROM) with unknown onset of labor Current Visit: Yes Status: Acute Code(s): O42.919 - PRETRM ROSANGELA ROM, UNSP TIME BETW RUPT AND ONST LABR, UNSP TRI SNOMED Code(s): 28925488612052952 (3) Spontaneous onset of labor Current Visit: No Status: Acute Code(s): CNV9332 - SNOMED Code(s): 24860024 Plan: 24-year-old 5 para 2 at 24 weeks, with complaints of P PROM and active labor. Patient is examined noted to be completely dilated with a bulging bag of water in the vaginal vault, via ultrasound is noted to be in a transverse presentation. Recommendation for primary given presentation is discussed with patient and her significant other. Anesthesia is in the room will proceed to operating suite.
[2024-02-05] MEDS ORDERED: ZOLPIDEM 5 MG TAB PO PRN (02:26)
[2024-02-05] MEDS ORDERED: METOCLOPRAMIDE 5 MG/ML 2 ML VIAL IVP PRN (02:26)
[2024-02-05] MEDS ORDERED: diphenhydrAMINE 50 MG CAP PO PRN (02:26)
[2024-02-05] MEDS ORDERED: diphenhydrAMINE 50 MG/ML 1 ML VIAL IVP PRN ×2 (02:26)
[2024-02-05] MEDS ORDERED: NALOXONE 0.4 MG/ML 1 ML VIAL IV PRN (02:26)
[2024-02-05] MEDS ORDERED: SIMETHICONE 80 MG CHEWABLE PO PRN (02:26)
[2024-02-05] MEDS ORDERED: ONDANSETRON 4 MG/2 ML VIAL IVP PRN (02:26)
[2024-02-05] MEDS ORDERED: diphenhydrAMINE 25 MG CAP PO PRN (02:26)
--- NOTE | 2024-02-05 02:26 | P.OP ---
Date of Procedure: 02/05/24 Preoperative Diagnosis: IUP at 24 0/7 weeks, PPROM, active labor, transverse presentation Postoperative Diagnosis: Same Procedure(s) Performed: Primary low-transverse section Anesthesia: GETA Surgeon: Jenny Wilburn Estimated Blood Loss (ml): 251 IV fluids (ml): 1,200 Urine output (ml): 300 Pathology: other (Placenta) Condition: stable Disposition: observation Indications for Procedure: 24-year-old 5 para 2-0-2-2 at 24-0/7 weeks presents with complaints of PPROM and active labor. Ultrasound done at bedside, transverse presentation was noted. Operative Findings: Normal uterus and ovaries, adherent placenta was appreciated, delivered appears macerated. Infant taken to nursery for resuscitation. Description of Procedure: Patient was taken back to the operating room where general anesthesia was obtained without difficulty by the anesthesia department. She was prepped and draped in the normal sterile fashion in the dorsal supine position. A Pf annenstiel skin incision was made with a scalpel and carried through the underlying layer of fascia. The fascia was incised in the midline and extended laterally. The superior aspect of the fascial incision was then grasped with Eugenie clamps, elevated and the underlying rectus muscles dissected off sharply. The inferior aspect of the fascial incision was then grasped with Eugenie clamps, elevated and the underlying rectus muscle was dissected off sharply. The rectus muscles were the midline the peritoneum was identified and entered. The bladder blade was inserted into the pelvis the scalpel was used to make a hysterotomy incision the was encountered in a breech presentation and delivered in the usual fashion. The umbilical cord is doubly clamped and cut and the was handed off to waiting RN. Infant was then taken to the nursery for resuscitative measures. The placenta was delivered in pieces, uterus was delivered from the abdomen and a moist laparotomy sponge was used to clear the uterus of any adherent placental pieces. The hysterotomy incision was closed with 0 Vicryl in a running locked fashion from 1 lateral edge to the other. A second imbricating suture was performed. The pelvis was then irrigated copiously. The uterus was returned to the abdomen. The hysterotomy incision was inspected found to be hemostatic. The peritoneum was then loosely reapproximated. The rectus muscles were inspected and found to be hemostatic. The fascia was closed with 0 Vicryl in a running fashion from 1 lateral edge to the other. The subcutaneous tissue was found to be hemostatic and closed with 3-0 Vicryl. The skin was closed with 4-0 Vicryl in a subcuticular fashion. Steri-Strips and sterile dressings were applied. All counts were noted be noel ect x 2 at the end of the procedure. Patient tolerated procedure well and was taken back to her labor and delivery suite.
[2024-02-05] MEDS ORDERED: HYDROmorphone PCA 10 MG/50 ML BAG IV PRN (03:00)
[2024-02-05] MEDS ORDERED: HYDROmorphone 0.5 MG/0.5 ML SYRINGE IVP PRN (04:00)
[2024-02-05] MEDS: ACETAMINOPHEN IV (For NPO) 1,000 MG in EMPTY BAG 1 BAG IVPB ONE (04:06)
[2024-02-05] MEDS: IBUPROFEN IV 800 MG in SODIUM CHLORIDE 0.9% 250 ML IV ONE (06:48)
--- NOTE | 2024-02-05 09:02 | P.PNOBGPC ---
Subjective - Subjective Interval history: The patient denies any significant emotional concerns at this time and appears to be coping extraordinarily well with the circumstances and outcome. She has not been given a regular diet at this point. She additionally has not been up and ambulating yet. Patient reports: Reports appetite normal, Reports voiding normally, Reports pain well controlled, Reports ambulating normally [place]: Objective - Vital Signs Latest vital signs: Vital Signs Temp Pulse Resp BP Pulse Ox 02/05/24 05:32 97.0 F L 101 H 16 122/77 97 02/05/24 04:25 97.0 F L 106 H 16 125/77 97 02/05/24 04:10 96 16 124/75 98 02/05/24 03:55 105 H 16 137/73 100 02/05/24 03:40 93 16 129/71 100 02/05/24 03:25 102 H 16 146/91 100 02/05/24 03:10 100 16 149/88 100 02/05/24 02:55 98 16 136/76 100 02/05/24 02:40 91 16 136/70 100 02/05/24 02:25 97.2 F L 86 16 143/64 97 02/05/24 01:00 97.5 F L 98 18 145/83 99 Intake and Output 02/04/24 02/05/24 02/05/24 22:59 06:59 14:59 Intake Total 50 Output Total 601 Balance -551 Intake: Oral 50 Output: Urine 225 Output, Quantitative 376 Blood Loss Other: Voiding Method Indwelling Catheter Weight 67.132 kg - Exam Extremities: Present: normal Abdomen: Present: normal appearance, soft. Absent: distention, tenderness Incision: Present: dressed (The dressing is left in place for the time being. I would anticipate removing that at lunchtime or shortly thereafter.) - Labs Labs: Abnormal Lab Results - Last 24 Hours (Table) 02/05/24 Range/Units 01:18 Hgb 10.2 L (11.4-16.0) gm/dL Hct 32.3 L (34.0-46.0) % MCV 74.0 L D (80.0-100.0) fL MCH 23.3 L (25.0-35.0) pg RDW 16.8 H (11.5-15.5) % Assessment and Plan (1) Status post section Current Visit: Yes Status: Acute Code(s): Z98.891 - HISTORY OF UTERINE SCAR FROM PREVIOUS SURGERY SNOMED Code(s): 574857244 Plan: The was unfortunately unable to be resuscitated. The patient appears to be coping extraordinarily well at this time but I have offered her intervention for depression and anxiety should she wish. I have encouraged her to be up and ambulating later today and would anticipate discharge home tomorrow pending no medical complications or postsurgical complications. I discussed with her that we may choose to have a post maternal- medicine consultation in order to explore whether further testing is necessary to decrease the potential risk to any further pregnancies. There is no evidence for an etiology for this circumstance at this time though it is clear that this was labor rather than cervical incompetence. There has been and is at this time no further evidence for infection or other etiology.
[2024-02-05] MEDS: ACETAMINOPHEN TAB 500 MG TAB PO SCH (12:56)
[2024-02-05] MEDS: IBUPROFEN 800 MG TAB PO SCH (13:00)
[2024-02-05] MEDS: SENNOSIDES-DOCUSATE SODIUM 1 EACH TAB PO SCH (13:01)
[2024-02-05] MEDS: PRENATAL VIT-IRON-FOLIC ACID 1 EACH TABLET PO SCH (13:02)
[2024-02-05] MEDS: AMPICILLIN 1,000 MG in SODIUM CHLORIDE 0.9% 50 ML IVPB SCH (13:03)
--- NOTE | 2024-02-05 14:40 | P.PNOBGPC ---
Subjective - Subjective Principal diagnosis: Postop day 0, section Interval history: Overall patient is doing well. Lochia is minimal. Patient states pain is controlled with oral ibuprofen and Tylenol. Spontaneous void this morning. Tolerating a regular diet without nausea or vomi ting Patient reports: Reports appetite normal, Reports voiding normally, Reports pain well controlled, Reports ambulating normally [place]: (24 weeks) Objective - Vital Signs Latest vital signs: Vital Signs Temp Pulse Resp BP Pulse Ox 02/05/24 08:00 98.4 F 100 16 110/71 97 02/05/24 05:32 97.0 F L 101 H 16 122/77 97 02/05/24 04:25 97.0 F L 106 H 16 125/77 97 02/05/24 04:10 96 16 124/75 98 02/05/24 03:55 105 H 16 137/73 100 02/05/24 03:40 93 16 129/71 100 02/05/24 03:25 102 H 16 146/91 100 02/05/24 03:10 100 16 149/88 100 02/05/24 02:55 98 16 136/76 100 02/05/24 02:40 91 16 136/70 100 02/05/24 02:25 97.2 F L 86 16 143/64 97 02/05/24 01:00 97.5 F L 98 18 145/83 99 Intake and Output 02/04/24 02/05/24 02/05/24 22:59 06:59 14:59 Intake Total 50 Output Total 601 325 Balance -551 -325 Intake: Oral 50 Output: Urine 225 325 Uretheral (Sanders) 325 Output, Quantitative 376 Blood Loss Other: Voiding Method Indwelling Catheter Weight 67.132 kg - Exam Extremities: Present: normal, edema Abdomen: Present: normal appearance Incision: Present: normal, dry, intact Uterus: Present: normal, firm - Labs Labs: Abnormal Lab Results - Last 24 Hours (Table) 02/05/24 Range/Units 01:18 Hgb 10.2 L (11.4-16.0) gm/dL Hct 32.3 L (34.0-46.0) % MCV 74.0 L D (80.0-100.0) fL MCH 23.3 L (25.0-35.0) pg RDW 16.8 H (11.5-15.5) % Assessment and Plan (1) 24 weeks gestation of Current Visit: Yes Status: Acute Code(s): Z3A.24 - 24 WEEKS GESTATION OF SNOMED Code(s): 859913693 (2) premature rupture of membranes (PPROM) with unknown onset of labor Current Visit: Yes Status: Acute Code(s): O42.919 - PRETRM ROSANGELA ROM, UNSP TIME BETW RUPT AND ONST LABR, UNSP TRI SNOMED Code(s): 29289564677955818 (3) Spontaneous onset of labor Current Visit: No Status: Acute Code(s): [id number] - SNOMED Code(s): 75361144 (4) Status post section Current Visit: Yes Status: Acute Code(s): Z98.891 - HISTORY OF UTERINE SCAR FROM PREVIOUS SURGERY SNOMED Code(s): 331973315 Plan: Patient is doing well postoperatively. Encourage increase ambulation, continue routine postoperative care
[2024-02-06 05:59] LABS: Anisocytosis Slight; Basophils % (A) 0 %; Eosinophils # (A) 0.2 k/uL (0-0.7); Eosinophils % (A) 3 %; HCT 27.2 % (34.0-46.0); Hypochromasia Marked; Lymphocytes # (A) 1.5 k/uL (1.0-4.8); Lymphocytes % (A) 22 %; MCH 22.8 pg (25.0-35.0); MCHC 30.1 g/dL (31.0-37.0); MCV 75.7 fL (80.0-100.0); Mean Platelet Volume 7.6; Microcytosis Slight; Monocytes # (A) 0.3 k/uL (0-1.0); Monocytes % (A) 5 %; Neutrophils # (A) 4.4 k/uL (1.3-7.7); Neutrophils % (A) 67 %; Platelet Count 199 k/uL (150-450); RDW 16.9 % (11.5-15.5); WBC 6.6 k/uL (3.8-10.6)
[2024-02-06 06:00] LABS: HGB 8.2 gm/dL (11.4-16.0)
[2024-02-06 08:17] VITALS: BP 104/60; PULSE 85; RESP 16; TEMP 98.8
--- NOTE | 2024-02-06 08:53 | P.DS ---
Providers Date of admission: 02/05/24 00:50 Expected date of discharge: 02/06/24 Attending physician: Jenny Wilburn Primary care physician: Stated None - Discharge Diagnosis(es) (1) Status post section Current Visit: Yes Status: Acute Hospital Course: The patient is a 24-year-old 5 para 2-0-2-2 admitted at 24-0/7 weeks by good dating parameters. She is admitted to labor and delivery with complaints of contractions and pain and is found to be completely dilated. She shortly thereafter had spontaneous rupture of membranes. Her had been complicated by a finding of a velamentous cord insertion and mild polyhydramnios for which she had a maternal- medicine consultation with the only recommendations for serial growth ultrasounds. On labor and delivery, she was found to have the baby in transverse presentation and was taken to the operating room where she underwent primary low-transverse section and was d elivered of a viable 1 pound 4 ounce baby boy with initial Apgars of 4 at 1 minute, 2 at 5 minutes and 1 at 10 minutes. Continued resuscitative efforts failed to resuscitate the baby and the baby approximately 1 hour after delivery. The patient's course has been remarkably uncomplicated with vital signs remaining stable and her temperature was afebrile throughout. She seems to be grieving appropriately. She was deemed stable for discharge on postoperative day #1 and was discharged home to follow-up in the office in 2 weeks for an incision check in 6 weeks routinely. Discharge instructions included calling for any significantly increased bleeding or foul-smelling lochia, significantly increased fever or abdominal pain, perineal complaints, breast complaints, incisional complaints, or anything else that concerned her. She was additionally instructed to have nothing in the vagina for at least 6 weeks time to include intercourse. She was to do no heavy lifting until 6 weeks and to abstain from driving until off of all pain medications or 2 weeks time, whichever came first. She understood her instructions and agrees to follow-up as noted above. Discharge medications included [id number] analgesic pain medications as well as a prescription which she was going to hold for oxycodone 5 mg, 1-2 p.o. every 6 hours as needed pain, #20 dispensed with no refills. Maternal blood type is O+ and rubella status is immune. Discharge hemoglobin and hematocrit were 8.2 and 27.2 respectively. As a result, she was instructed to take iron sulfate once daily for the next month to recoup her hemoglobin. Procedures: #1. Urgent/emergent primary low-transverse section Patient Condition at Discharge: Stable Plan - Discharge Summary New Discharge Prescriptions: No Action Cephalexin [Keflex] 500 mg PO Q8HR 5 Days #15 cap Vit No.179/Iron/Folic [ Tablet] 1 each PO DAILY Miconazole 2% Vaginal Cream [Monistat 7] 1 applicator VAGINAL HS 7 Days #45 gm Discharge Medication List Vit No.179/Iron/Folic [ Tablet] 1 each PO DAILY 08/03/22 [History] Cephalexin [Keflex] 500 mg PO Q8HR 5 Days #15 cap 11/25/23 [Rx] Miconazole 2% Vaginal Cream [Monistat 7] 1 applicator VAGINAL HS 7 Days #45 gm 11/25/23 [Rx] Follow up Appointment(s)/Referral(s): Jenny Wilburn DO [Doctor of Osteopathic Medicine] - 03/19/24 1:45 pm (Post C/S appointment 02-19-2024 at 8:45am) Discharge Disposition: HOME SELF-CARE
== END 2024-02-06 09:45 | disposition home or self-care (01) | DRG 540 ==
LOC: FBPOP 00:30 → 4FBP 00:50
PROVIDERS: ADMIT Obstetrics & Gynecology Obstetrics; ATTEND Obstetrics & Gynecology Obstetrics
PROC: 10D00Z1 Extraction of Products of Conception, Low, Open Approach (ICD-10-PCS; principal; 2024-02-05)
DX: O42.02 Full-term premature rupture of membranes, onset of labor within 24 hours of rupture (principal); O32.2XX0 Maternal care for transverse and oblique lie, not applicable or unspecified; O99.02 Anemia complicating childbirth; O40.2XX0 Polyhydramnios, second trimester, not applicable or unspecified; O72.1 Other immediate postpartum hemorrhage; O69.89X0 Labor and delivery complicated by other cord complications, not applicable or unspecified; O43.122 Velamentous insertion of umbilical cord, second trimester; Z37.0 Single live birth; Z3A.24 24 weeks gestation of pregnancy; Z90.49 Acquired absence of other specified parts of digestive tract
CPT/HCPCS: 84112; 85025; 86850; 86900; 86901; 96360; 99214